=== PATIENT | female | born 1965 | race Caucasian/White ===

== ENCOUNTER 2025-01-10 14:42 | Emergency (ER) | payer OTHER, SELFPAY ==
[2025-01-10] VITALS (8 sets, daily range): BP systolic 115–140; BP diastolic 63–77; PULSE 76–90; RESP 13–18; TEMP 36.5–36.9; O2SAT 98–100; BMI 31.8
--- NOTE | ~2025-01-10 | CT_ITS ---
CLINICAL HISTORY: cp and elevated d dimer r o PE. CT angiography chest with contrast. 3D Postprocessing. Comparison: CR/CO/SR - XR CHEST 2V - 01/10/25 15:45 EDT Findings: Aortic and coronary atherosclerosis. No aneurysm. No acute pulmonary embolus. Normal heart size. Normal RV/LV ratio. Thyroid gland is not visualized. No enlarged mediastinal or hilar lymph nodes. Linear scarring versus atelectasis in the right upper lobe and lingula. No consolidation, pleural effusion or pneumothorax. Splenomegaly measuring 19.9 cm in the AP dimension. Nodular contour of the liver suggesting cirrhosis. Fatty atrophy of the pancreas. Contracted gallbladder. Subacute to chronic fractures of the right anterior 2nd through 6th and left anterior 3rd through 5th ribs. IMPRESSION: 1. No acute pulmonary embolus. 2. Subacute to chronic fractures of the right anterior 2nd through 6th and left anterior 3rd through 5th ribs. 3. Splenomegaly, measuring 19.9 cm. Nodular hepatic contour suggesting cirrhosis. This document has been electronically signed by: Clementina Salter MD on 01/10/2025 22:03:38
--- NOTE | ~2025-01-10 | XR_ITS ---
EXAMINATION: XR CHEST CLINICAL INFORMATION: chest pain COMPARISON: None available. TECHNIQUE: 2 views of the chest were obtained. FINDINGS: Poor inspiration. No consolidation, pleural effusion or pneumothorax. Cardiomediastinal silhouette size is normal. Calcified plaque thoracic aortic arch. Mild multilevel thoracic spondylosis. Kyphotic deformity of the upper thoracic spine. Patient's large body habitus/obesity. XR/XR chest 2V IMPRESSION: No acute airspace disease. Electronically signed by: Lucio Sierra MD 01/10/2025 03:49 PM EDT RP
--- NOTE | 2025-01-10 14:44 | ECG_ITS ---
Test Reason : chest pain Blood Pressure : */* mmHG Vent. Rate : 86 BPM Atrial Rate : 86 BPM P-R Int : 142 ms QRS Dur : 70 ms QT Int : 356 ms P-R-T Axes : 19 2 21 degrees QTcB Int : 426 ms Normal sinus rhythm Minimal voltage criteria for LVH, may be normal variant ( R in aVL ) Borderline ECG No previous ECGs available Referred By: Generic ED Physician Electronically Signed By: YAMEL SAINZ
--- NOTE | 2025-01-10 14:59 | ED.CHESTPAIN ---
HPI - Chest Pain General Chief Complaint: Chest Pain Stated Complaint: Chest pain, SOB Time Seen by Provider: 01/10/25 16:47 Source: patient and family (Daughter) Mode of arrival: ambulatory Limitations: no limitations History of Present Illness ED Provider: DR. Quevedo HPI narrative: 59-year-old female presented with multiple symptoms since this morning, patient woke up this morning with mid chest pain with no radiation localized to the left of the midsternum, pain was associated with subjective difficulty breathing, dizziness and lightheadedness. No recent travel, no lower extremity swelling or tenderness, no history of cigarette smoking or history of lung disease. 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 Related Data Allergies Allergy/AdvReac Type Severity Reaction Status Date / Time Penicillins Allergy Anaphylaxis Verified 01/10/25 14:58 sitagliptin [From Januvia] Allergy Unknown Verified 01/10/25 14:58 Review of Systems Review of Systems: All other systems are reviewed and are negative Constitutional: Reports as per HPI and Reports no additional constitutional complaints Eyes: Reports as per HPI and Reports no additional eye complaints Reports system reviewed and no additional complaints, except as documented Cardiovascular: Reports as per HPI and Reports no additional cardiovascular complaints Respiratory: Reports as per HPI and Reports no additional respiratory complaints Gastrointestinal: Reports as per HPI and Reports no additional gastrointestinal complaints Genitourinary: Reports no additional female genitourinary complaints Musculoskeletal: Reports no additional musculoskeletal complaints Skin/Breast: Reports system reviewed and no additional complaints, except as docu Psychiatric: Reports no additional psychiatric complaints Endocrine: Reports no additional endocrine complaints Hematologic/Lymphatic: Reports no additional hematologic/lymphatic complaints Allergic/Immunologic: Reports no additional allergic/immunologic complaints Reports system reviewed and no additional complaints, except as documented and Reports Abnormal speech present [facility] Social History Social History Alcohol intake: never Smoked in Last 30 Days: No Use of substances other than those prescribed or required for medical reasons: No Advance Directives: No Advance Directives Information Provided: Yes Patient : No Physical Exam Vital Signs: Vital Signs: Last Vital Signs Temp 98.5 F 01/10/25 22:32 Pulse 85 01/10/25 22:32 Resp 18 01/10/25 22:32 BP 135/77 01/10/25 22:32 Pulse Ox 99 01/10/25 22:32 O2 Del Method Room Air 01/10/25 22:32 BMI result Body Mass Index 31.8 Vital signs have been reviewed and appear to be correct. Blood pressure elevated. Heart rate normal. Respiratory rate normal. Temperature normal. Oxygen saturation normal. Appearance: Alert. Oriented X3. No acute distress. Head: Normal external exam. Normocephalic. Atraumatic. No Lopez signs noted. No raccoon eyes noted Eyes: PERRLA. EOMI. Conjunctiva and sclera normal. Eyelids normal. ENT: TM's Normal. Pharynx normal. Uvula midline. Moist mucous membranes. No trismus noted. No drooling noted. No muffled voice noted. Neck: Normal inspection. Neck supple. FROM. No adenopathy. Thyroid Normal. No meningeal signs. No neck mass noted. CVS: Normal heart rate and rhythm. Heart sound normal. No murmurs noted. Pulses normal throughout. Respiratory: No respiratory distress. Painless inspiration. Breath sounds normal. No wheezes/rales/rhonchi noted. Chest nontender. No accessory muscle usage noted or decreased air movement noted. Abdomen: Soft and nontender. Bowel sounds normal in all 4 quadrants. No distention noted. No organomegaly noted. No visible injury noted. Back: No CVA tenderness. Full range of motion noted. Skin: Skin warm and dry. Normal skin color. Normal skin turgor. No rashes/lesions/lacerations noted. Extremities: No lower extremity edema. Extremities exhibit normal range of motion. Extremities nontender. Neuro: Oriented X 3. Cranial nerve exam: II-XII are grossly intact No motor deficit. No sensory deficit. Reflexes normal. Course Course Course Narrative: This is a rapid medical exam performed by Fletcher Flores NP: Additional HPI, ROS, PE not included below will be deferred to primary provider. Patient is a 59-year-old female with pmhx thrombocytopenia, anemia, DM, PBC, recent dx of HFpEF presenting with mild chest pain. Plan: ekg, cxr, labs Reevaluation(s) Reevaluation #1: Slight elevation of D-dimer, CTA is negative for pulmonary embolism, will hydrate with IV fluids. Patient also was encouraged to drink plenty of fluids after the CAT scan. Time: 21:29 Medications Administered Discontinued Medications Generic Name Dose Route Start Last Admin Trade Name Reshma PRN Reason Stop Dose Admin Lactated Ringer's 1,000 mls @ 999 mls/hr 01/10/25 20:00 01/10/25 21:10 Lr IV 01/10/25 21:00 Infused .Q1H1M ROBBIE Infusion Lactated Ringer's 1,000 mls @ 999 mls/hr 01/10/25 20:30 01/10/25 22:14 Lr IV 01/10/25 21:30 Infused .Q1H1M ROBBIE Infusion Iohexol 100 ml 01/10/25 19:54 01/10/25 19:54 Iohexol 350 Mg/Ml 100 Ml Infus..Btl IV 01/10/25 19:55 65 ml ONCE ONE Administration Procedures Procedure Narrative Procedure Narrative: Ultrasound-guided IV. 20 gauge 1-3/4 inch IV placed in left upper extremity. Adequate blood return, flushes well secured with Tegaderm. Performed by Jen Adame PA-C Medical Decision Making Medical Decision Making MDM Narrative: patient's CTA negative for PE showed subacute bilateral rib fracture Differential Diagnosis Differential Diagnoses: The differential diagnosis associated with the presentation includes (ACS, pulmonary embolism, pneumonia, pneumothorax, pleural effusion, electrolyte derangement, severe anemia, aortic aneurysm.) Admission/Observation Consideration of admission/observation: Escalation of care including admission/observation considered Lab Data [facility] Lab Attestation statement: I reviewed the patient's lab results. 01/10/25 15:10 01/10/25 15:10 Labs: Lab Results 01/10/25 01/10/25 Range/Units 15:10 18:02 WBC 3.6 L (4.8-10.8) X10*3/uL RBC 3.10 L (4.20-5.50) X10*6/uL Hgb 10.2 L (12.0-16.0) g/dl Hct 27.9 L (37.0-47.0) % MCV 90.0 (80.0-98.0) fL MCH 32.9 (27.0-33.0) pg MCHC 36.6 H (31.0-35.0) g/dl RDW 15.8 (11.0-16.0) % Plt Count 68 L (160-400) X10*3/uL MPV 10.1 (9.4-12.3) fL Immature Gran % (Auto) 0.3 (0.0-0.4) % Neut % (Auto) 63.8 (45-73) % Lymph % (Auto) 18.2 L (20-40) % [place] % (Auto) 8.0 (2-11) % Eos % (Auto) 9.1 H (0-4) % Baso % (Auto) 0.6 (0-2) % Lymph # (Auto) 0.7 L (1.2-4.9) X10*3/uL [place] # (Auto) 0.3 (0.1-1.2) X10*3/uL Eos # (Auto) 0.3 (0.0-0.4) X10*3/uL Baso # (Auto) 0.0 (0.0-0.2) X10*3/uL Abs Immat Gran (auto) 0.01 (0.00-0.03) X10*3/uL Absolute Neuts (auto) 2.3 (2.0-8.3) x10*3/uL Absolute Nucleated RBC 0.000 (0.0-0.012) X10*3/uL Nucleated RBC % (auto) 0.0 (0.0-0.2) /100WBC Smear Tech's Comments VERIFIED D-Dimer High Sensitivty 290 NG/ML Sodium 134 L (135-145) mmol/L Potassium 4.6 (3.3-5.1) mmol/L Chloride 102 (96-108) mmol/L Carbon Dioxide 25 (22-29) mmol/L Anion Gap 12 (12-20) BUN 21 H (9-16) mg/dL Creatinine 1.47 H (0.5-1.4) mg/dL Estim Creat Clear Calc 43.7 Estimated GFR 36 Random Glucose 394 H* (60-115) mg/dL Calcium 9.6 (8.4-10.2) mg/dL Magnesium 1.7 (1.6-2.6) mg/dL Total Bilirubin 2.2 H (0.0-1.0) mg/dL AST 27 (5-31) U/L ALT 20 (0-31) U/L Alkaline Phosphatase 85 (39-117) U/L Troponin I High Sens < 2.7 < 2.7 (<3.5-17.0) ng/L Total Protein 6.5 (6.5-8.0) g/dL Albumin 4.0 (3.5-5.0) g/dL Independent Interpretation I performed an independent interpretation of an: CT Scan (CT angio: No acute pulmonary embolism) Radiology Impression Discussion of test interpretation with radiology: I have reviewed the radiologist's reading. Discharge Plan Discharge Clinical Impression: Atypical chest pain Patient Disposition: Home, Self-Care Instructions: Chest Pain (ED) Additional Instructions: your CT scan is negative for blood clot workup showed you have low hemoglobin and low platelet and white count that might be the cause for your shortness a breath follow up with your PCP Referrals: Richard Calloway MD [Primary Care Provider] - Hank Gentile MD [Physician] - Interventions: ED Discharge Assessment Last Done: 01/10/25 22:32 Discharge Date/Time: 01/10/25 22:33 Print Language: Arabic
[2025-01-10 15:39] LABS: Troponin-I High Sensitivity < 2.7 ng/L (<3.5-17.0)
[2025-01-10 15:49] LABS: Alanine Aminotransferase 20 U/L (0-31); Anion Gap 12 (12-20); Aspartate Amino Transferase 27 U/L (5-31); Bilirubin Total 2.2 mg/dL (0.0-1.0); Blood Urea Nitrogen 21 mg/dL (9-16); Calcium 9.6 mg/dL (8.4-10.2); Carbon Dioxide 25 mmol/L (22-29); Chloride 102 mmol/L (96-108); Creatinine Clr Calc Pharmacy 43.7; Estimated Glomerular Filt Rate 36; Glucose Random 394 mg/dL (60-115); Magnesium 1.7 mg/dL (1.6-2.6); Potassium 4.6 mmol/L (3.3-5.1); Sodium 134 mmol/L (135-145); Total Protein 6.5 g/dL (6.5-8.0)
[2025-01-10 16:00] LABS: Basophils Percent Auto 0.6 % (0-2); Eosinophils Absolute Auto 0.3 X10*3/uL (0.0-0.4); Eosinophils Percent Auto 9.1 % (0-4); Hematocrit 27.9 % (37.0-47.0); Hemoglobin 10.2 g/dl (12.0-16.0); Imm Gran Abs Auto 0.01 X10*3/uL (0.00-0.03); Imm Gran Pct Auto 0.3 % (0.0-0.4); Lymphocytes Absolute Auto 0.7 X10*3/uL (1.2-4.9); Lymphocytes Percent Auto 18.2 % (20-40); MANUAL DIFF FLAG SCAN; Mean Corpuscular HGB Conc 36.6 g/dl (31.0-35.0); Mean Corpuscular Hemoglobin 32.9 pg (27.0-33.0); Mean Platelet Volume 10.1 fL (9.4-12.3); Monocytes Absolute Auto 0.3 X10*3/uL (0.1-1.2); Neutrophils Absolute Auto 2.3 x10*3/uL (2.0-8.3); Neutrophils Percent Auto 63.8 % (45-73); PLT CLUMP 1; Red Cell Distribution Width 15.8 % (11.0-16.0); SCAN SMEAR FLAG 1
[2025-01-10 16:02] LABS: White Blood Count 3.6 X10*3/uL (4.8-10.8)
[2025-01-10 16:04] LABS: Platelet Count 68 X10*3/uL (160-400); SLIDE REVIEW VERIFIED
[2025-01-10 16:08] LABS: Alkaline Phosphatase 85 U/L (39-117)
--- OUTSIDE RECORDS SUMMARY | 2025-01-10 16:28 | XMS_ITS | Encounter Summary ---
Author Organization [facility] Address [address] [place] [address] Care Team Providers Care Balancing Machine Set Up Worker Name Role Phone Carolina Park MD Primary Care Provider Carolina Park MD Unavailable Carolina Park MD Unavailable [phone] Carolina Park MD Unavailable Armani Michelle MD Unavailable [phone] Armani Michelle MD Unavailable Pranav Jones MD Unavailable [phone] Steffany Kirkpatrick RN Unavailable [phone] Carla Talbert MD Primary Care Provider [phone] Encounter Details Date Type Department Care Team (Late st Contact Info) Description 11/28/2015 Scanned Document [facility] [address] [address] Provider, Generic Social History Tobacco Use Types Packs/Day Years Used Date Smoking Tobacco: Never Alcohol Use Standard Drinks/Week Comments No 0 (1 standard drink = 0.6 oz pur e alcohol) Non drinker/ no alcohol use Comments No Sex and Gender Information Value Date Recorded Sex Assigned at Female 09/24/2022 11:49 AM EST Legal Sex Female 11:52 PM EDT Gender Identity Female 09/24/2022 11:49 AM EST Sexual Orientation Heterosexual (straight) 09/24 11:49 AM EST documented as of this encounter Plan of Treatment Upcoming Encounters Date Type Department Care Team (Late st Contact Info) Description 01/30/2025 2:30 PM EDT Office Visit [facility] [place] [address] [place] [address] Deniz Jean Baptiste MD [address] [place] [address] [address] [place] [address] documented as of this encounter Visit Diagnoses Not on filedocumented in this encounter Care Teams Balancing Machine Set Up Worker Relationship Specialty Start Date End Date Carolina Park MD [address] [place] [address] PCP - General Internal Medicine 03/25/15 11/02/18 Carla Talbert MD [address] [place] [address] [place] [address] PCP - General Internal Medicine 07/14/22 Carolina Park MD [address] [place] [address] Internal Medicine 03/25/15 11/02/18 Carolina Park MD [address] [place] [address] Internal Medicine 03/25/15 11/02/18 Carolina Park MD [address] [place] [address] Internal Medicine 03/25/15 11/02/18 Armani Michelle MD [address] [id number] Gastroenterology 01/13/18 11/02/18 Armani Michelle MD [address] [address] Gastroenterology 11/03/18 Pranva Jones MD [address] [place] [address] Medical Oncology 07/09/22 Steffany Kirkpatrick, RN [address] [place] [address] Registered Nurse 07/09/22 documented as of this encounter
--- OUTSIDE RECORDS SUMMARY | 2025-01-10 16:28 | XMS_ITS | Clinical Summary ---
Author Organization [facility] Address [address] [place] [address] Care Team Providers Care Craft Worker Name Role Phone Carolina Park MD Primary Care Provider [phone] Surgical History Surgery Date Site/Laterality Comments APPENDECTOMY PROCEDURE:APPENDECTOMY CARPAL TUNNEL RELEASE PROCEDURE:CARPAL TUNNEL RELEASE TOTAL ABDOMINAL HYSTERECTOMY PROCEDURE:TOTAL ABDOMINAL HYSTERECTOMY TRIGGER FINGER RELEASE PROCEDURE:TRIGGER FINGER RELEASE;COMMENT:3rd finger HAND SURGERY 01/03/2018 Left PROCEDURE:PALMAR FASCIECTOMY;COMMENT:Procedure: FASCIECTOMY PALMAR; Surgeon: Timothy Espino MD; Location[place] [facility]; Service: Orthopedics; Laterality: Left; Medical History Medical History Date Comments Diabetes mellitus, type II ( CMS/HCC V24, CMS/HCC V28) DX:Diabetes mellitus, type I I ([facility]) Hypertension DX:Hypertension Dupuytren's contracture of left hand DX:Dupuytren's contracture of left hand Hypothyroidism DX:Hypothyroidis m Family History Medical History Relation Name Comments Alcohol abuse Father Drug abuse Father Hypothyroidism Maternal Grandmother Stroke Maternal Grandmother Alcohol abuse Mother Drug abuse Mother Stroke Mother Relation Name Status Comments Father Maternal Grandmother Mother Social History Tobacco Use Types Packs/Day Years Used Date Smoking Tobacco: Never Smokeless Tobacco: Never Alcohol Use Standard Drinks/Week Comments No 0 (1 standard drink = 0.6 oz pur e alcohol) Comments Unknown Sex and Gender Information Value Date Recorded Sex Assigned at Not on file Legal Sex Female 6:33 PM EST Gender Identity Not on file Sexual Orientation Not on file Obstetrics History Plan of Treatment Health Maintenance Due Date Last Done Comments Breast Cancer Screening 1963 DTaP,Tdap,and Td Vaccines (1 - Tdap) 1982 Cervical Cancer Screening: P ap Smear 1984 Pneumococcal Vaccine: 50+ Ye ars (1 of 1 - PCV) 2013 Zoster Vaccines (1 of 2) 2013 COVID-19 Vaccine ( - 2023-2 5 season) 2024 Influenza Vaccine (Season Ended) 2025 RSV Immunization Adult Patie nts (1 - 1-dose 75+ series) 2038 HIB Vaccines Aged Out No longer eligi ble based on patient's age to complete this topic HPV Vaccines Aged Out No longer eligi ble based on patient's age to complete this topic Hepatitis A Vaccines Aged Out No long er eligible based on patient's age to complete this topic Hepatitis B Vaccines Aged Out No long er eligible based on patient's age to complete this topic IPV Vaccines Aged Out No longer eligi ble based on patient's age to complete this topic MMR Vaccines Aged Out No longer eligi ble based on patient's age to complete this topic Meningococcal ACWY Vaccine Aged Out N o longer eligible based on patient's age to complete this topic Meningococcal B Vaccine Aged Out No l onger eligible based on patient's age to complete this topic Pneumococcal Vaccine: Pediat rics (0 to 5 Years) and At-Risk Patients (6 to 64 Years) Aged Out No longer eligible b ased on patient's age to complete this topic RSV Immunization Patients Un maria fernanda 20 months Aged Out No longer eligible b ased on patient's age to complete this topic Varicella Vaccines Aged Out No longer eligible based on patient's age to complete this topic Care Teams Craft Worker Relationship Specialty Start Date End Date Carolina Park MD [address] [place] [address] PCP - General Family Medicine 01/03/18
--- OUTSIDE RECORDS SUMMARY | 2025-01-10 16:28 | XMS_ITS | Encounter Summary ---
Author Organization [facility] Address [address] [place] [address] Care Team Providers Care Compass Operator Name Role Phone Carolina Park MD Primary Care Provider Carolina Park MD Unavailable Carolina Park MD Unavailable [phone] Carolina Park MD Unavailable Armani Michelle MD Unavailable [phone] Armani Michelle MD Unavailable Pranav Jones MD Unavailable [phone] Steffany Kirkpatrick RN Unavailable [phone] Carla Talbert MD Primary Care Provider [phone] Encounter Details Date Type Department Care Team (Late st Contact Info) Description 12/27/2017 Scanned Document [facility] [employer] [address] [address] Carolina Park MD [address] [address] Social History Tobacco Use Types Packs/Day Years [...] Description 01/30/2025 2:30 PM EDT Office Visit [facility] [place] [address] [place] [address] Deniz Jean Baptiste MD [address] [address] documented as of this encounter Visit Diagnoses Not on filedocumented in this encounter Care Teams Compass Operator Relationship Specialty Start Date End Date Carolina Park MD [address] [place], [place] [phone] PCP - General Internal Medicine 03/25/15 11/02/18 Carla Talbert MD [address] [place] [address] PCP - General Internal Medicine 07/14/22 Carolina Park MD [address] [place], [place] [phone] Internal Medicine 03/25/15 11/02/18 Carolina Park MD [address] [place] [phone] Internal Medicine 03/25/15 11/02/18 Carolina Park MD [address] [place] [address] Internal Medicine 03/25/15 11/02/18 Armani Michelle MD [address] [place] [address] Gastroenterology 01/13/18 11/02/18 Armani Michelle MD [address] [place] [address] Gastroenterology 11/03/18 Pranav Jones MD [address] [place] [address] Medical Oncology 07/09/22 Steffany Kirkpatrick, RN [address] [place] [address] Registered Nurse 07/09/22 documented as of this encounter
--- OUTSIDE RECORDS SUMMARY | 2025-01-10 16:28 | XMS_ITS | Clinical Summary ---
Author Organization [facility] Address [address] [place] [address] Care Team Providers Care Commercial Artist Lettering Name Role Phone Carolina Park MD Primary Care Provider [phone] Allergies Active Allergy Reactions Criticality Noted Date Comments Penicillins Anaphylaxis High 01/02/2018 Medications Medication Sig Dispensed Refills Start Date End Date Status TRULICITY 1.5 MG/0.5ML SOPN Inject 1 Dose under the skin once a week. 0 11/28/2017 Active glyBURIDE-metFORMIN (GLUCOVANCE) 5-500 MG per tablet Take 2 tablets by mouth 2 (two) times a day. 0 11/22/2017 Active guaiFENesin-codeine (ROBITUSSIN-AC) 100-10 MG/5ML syrup Take 5 mL by mouth 4 (four) times a day as needed. For cough 0 11/22/2017 Active SYNTHROID 125 MCG tablet Take 1 tablet by mouth daily. 0 11/22/2017 Active PROAIR HFA 108 (90 Base) MCG/ACT inhaler Inhale 1 puff into the lungs as needed. 0 10/06/2017 Active mometasone-formotero l (DULERA) 100-5 MCG/ACT inhaler 1 inhalation by Inhaled route every 12 (twelve) hours. 0 Active Multiple Vitamins-Minerals (MULTIVITAMIN ADULT PO) Take 1 tablet by mouth daily. 0 Active simvastatin (ZOCOR) tablet 10 mg Take 1 tablet by mouth every night at bedtime. 0 11/22/2017 Active valsartan (DIOVAN) tablet 80 mg Take 1 tablet by mouth daily. 0 11/22/2017 Active Family History Medical History Relation Name Comments Alcohol abuse Father Drug abuse Father Hypothyroidism Maternal Grandmother Stroke Maternal Grandmother Alcohol abuse Mother Drug abuse Mother Stroke Mother Relation Name Status Comments Father Maternal Grandmother Mother Social History Tobacco Use Types Packs/Day Years Used Date Smoking Tobacco: Never Smokeless Tobacco: Never Tobacco Cessation:Counseling Given: No Alcohol Use Standard Drinks/Week Comments No 0 (1 standard drink = 0.6 oz pur e alcohol) Sex and Gender Information Value Date Recorded Sex Assigned at Not on file Gender Identity Not on file Sexual Orientation Not on file Last Filed Vital Signs Vital Sign Reading Time Taken Comments Blood Pressure 114/65 01/03/2018 10:32 AM EDT Pulse 75 01/03/2018 10:40 AM EDT not patients vitals flowing from different monitor Temperature 36.3 ??C (97.3 ??F) 01/03/2018 1 0:07 AM EDT Respiratory Rate 20 01/03/2018 10:4 0 AM EDT not patients vitals flowing from different monitor Oxygen Saturation 95% 01/03/2018 10: 40 AM EDT not patients vitals flowing from different monitor Inhaled Oxygen Concentration - - Weight 102.5 kg (226 lb) 01/03/2018 8:2 3 AM EDT Height 165.1 cm (5' 5 ) 01/03/2018 8:23 AM EDT Body Mass Index 37.61 01/03/2018 8:23 AM EDT Plan of Treatment Not on file Care Teams Commercial Artist Lettering Relationship Specialty Start Date End Date Carolina Park MD [address] [facility] [address] [place] [address] PCP - General Family Medicine 01/03/18
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
--- OUTSIDE RECORDS SUMMARY | 2025-01-10 16:28 | XMS_ITS | Encounter Summary ---
Author Organization [facility] Address [address] [place] [address] Care Team Providers Care System Safety Engineer Name Role Phone Carolina Park MD Primary Care Provider Carolina Park MD Unavailable Carolina Park MD Unavailable [phone] Carolina Park MD Unavailable Armani Michelle MD Unavailable [phone] Armani Michelle MD Unavailable Pranav Jones MD Unavailable [phone] tSeffany Kirkpatrick RN Unavailable [phone] Carla Talbert MD Primary Care Provider [phone] Reason for Visit * Reason Comments Medication Refill Encounter Details Date Type Department Care Team (Late st Contact Info) Description 05/02/2017 Refill [facility] [address] [phone] Carolina Park MD [address] [address] Essential hypertension Social History Tobacco Use Types Packs/Day Years [...] Description 01/30/2025 2:30 PM EDT Office Visit [facility] [address] [phone] Deniz Jean Baptiste MD [address] [place] [address] documented as of this encounter Visit Diagnoses Diagnosis Essential hypertension Unspecified essential hypertension documented in this encounter Care Teams System Safety Engineer Relationship Specialty Start Date End Date Carolina Park MD [address] [place] [address] PCP - General Internal Medicine 03/25/15 11/02/18 Carla Talbert MD [address] [place] [address] PCP - General Internal Medicine 07/14/22 Carolina Park MD [address] [place] [address] Internal Medicine 03/25/15 11/02/18 Carolina Park MD [address] [place] [address] Internal Medicine 03/25/15 11/02/18 Carolina Park MD [address] [place] [address] Internal Medicine 03/25/15 11/02/18 Armani Michelle MD [address] [place], [place] [phone] Gastroenterology 01/13/18 11/02/18 Armani Michelle MD [address] [place] [address] Gastroenterology 11/03/18 Pranav Jones MD [address] [place] [address] Medical Oncology 07/09/22 Steffany Kirkpatrick, RN [address] [place] [address] Registered Nurse 07/09/22 documented as of this encounter
--- OUTSIDE RECORDS SUMMARY | 2025-01-10 16:28 | XMS_ITS | Encounter Summary ---
Author Organization [facility] Address [address] [place] [address] Care Team Providers Care Swatch Maker Name Role Phone Carolina Park MD Primary Care Provider Carolina Park MD Unavailable Carolina Park MD Unavailable [phone] Carolina Park MD Unavailable Armani Michelle MD Unavailable Armani Michelle MD Unavailable [phone] Pranav Jones MD Unavailable [phone] Steffany Kirkpatrick RN Unavailable [phone] Carla Talbert MD Primary Care Provider [phone] Encounter Details Date Type Department Care Team (Late st Contact Info) Description 11/27/2016 Scanned Document [facility] [address] [place] [phone] Provider, Generic Social History Tobacco Use [...] Description 01/30/2025 2:30 PM EDT Office Visit [facility] [place] [address] [place] [address] Deniz Jean Baptiste MD [address] [place] [address] [address] [place] [address] documented as of this encounter Visit Diagnoses Not on filedocumented in this encounter Care Teams Swatch Maker Relationship Specialty Start Date End Date Carolina Park MD [address] [place] [address] PCP - General Internal Medicine 03/25/15 11/02/18 Carla Talbert MD [address] [place] [address] [place] [address] PCP - General Internal Medicine 07/14/22 Carolina Park MD [address] [place] [address] Internal Medicine 03/25/15 11/02/18 Carolina Park MD [address] [place] [address] Internal Medicine 03/25/15 11/02/18 Carolina Park MD [address] [place] [address] Internal Medicine 03/25/15 11/02/18 Armani Michelle MD [address] [phone] Gastroenterology 01/13/18 11/02/18 Armani Michelle MD [address] [address] Gastroenterology 11/03/18 Pranav Jones MD [address] [place] [address] Medical Oncology 07/09/22 Steffany Kirkpatrick, RN [address] [place] [address] Registered Nurse 07/09/22 documented as of this encounter
--- OUTSIDE RECORDS SUMMARY | 2025-01-10 16:28 | XMS_ITS | Encounter Summary ---
Author Organization [facility] Address [address] [place] [address] Care Team Providers Care Mediator Name Role Phone Carolina Park MD Primary Care Provider [phone] Carolina Park MD Unavailable Carolina Park MD Unavailable [phone] Carolina Park MD Unavailable [phone] Armani Michelle MD Unavailable [phone] Armani Michelle MD Unavailable Pranav Jones MD Unavailable [phone] Steffany Kirkpatrick RN Unavailable [phone] Carla Talbert MD Primary Care Provider [phone] Reason for Visit * Reason Comments Medication Refill Encounter Details Date Type Department Care Team (Late st Contact Info) Description 04/07/2018 Refill CC [facility] [address] [phone] Carolina Park MD [address] [address] Type 2 diabetes mellitus without complication, with long-term current use of insulin (HCC) Social History Tobacco Use Types Packs/Day Years [...] Description 01/30/2025 2:30 PM EDT Office Visit [facility] [address] [phone] Deniz Jean Baptiste MD [address] [place] [address] documented as of this encounter Visit Diagnoses Diagnosis Type 2 diabetes mellitus without complication, with long-term current use of insulin (HCC) documented in this encounter Care Teams Mediator Relationship Specialty Start Date End Date Carolina Park MD [address] [place] [address] PCP - General Internal Medicine 03/25/15 11/02/18 Carla Talbert MD [address] [place] [address] PCP - General Internal Medicine 07/14/22 Carolina Park MD [address] [place] [id number] Internal Medicine 03/25/15 11/02/18 Carolina Park MD [address] [phone] Internal Medicine 03/25/15 11/02/18 Carolina Park MD [address] [address] Internal Medicine 03/25/15 11/02/18 Armani Michelle MD [address] [place] [address] Gastroenterology 01/13/18 11/02/18 Armani Michelle MD [address] [place] [address] Gastroenterology 11/03/18 Pranav Jones MD [address] [place] [address] Medical Oncology 07/09/22 Steffany Kirkpatrick, RN [address] [place] [address] Registered Nurse 07/09/22 documented as of this encounter
--- OUTSIDE RECORDS SUMMARY | 2025-01-10 16:28 | XMS_ITS | Clinical Summary ---
Author Organization [facility] Address [address] [place] [address] Care Team Providers Care Automobile Tire Builder Name Role Phone Armani Michelle MD Unavailable [phone] Pranav Jones MD Unavailable [phone] Steffany Kirkpatrick RN Unavailable [phone] Carla Talbert MD Primary Care Provider [phone] Allergies Active Allergy Reactions Criticality Noted Date Comments Empagliflozin Other (See Comments) Low 12/31/2024 UTIs and yeast infections Penicillins Anaphylaxis High 04/11/2015 Medications glyBURIDE-metFORMI N (GLUCOVANCE) 5-500 MG per tabletIndications: Type 2 diabetes mellitus without complication, with long-term current use of insulin (HCC) Take 1 tablet by mouth 3 (three) times a day. 270 tablet 1 09/07/19 19 Active Additional Information Patient taking differently: 2 tabletOral2 times daily, Reason: Other, Informant: Self, Reported on 01/18/2023 simvastatin (ZOCOR) 10 MG tabletIndications: Hyperlipidemia, unspecified hyperlipidemia type Take 1 tablet (10 mg total) by mouth nightly. 90 tablet 1 09/07/19 19 Active empagliflozin (JARDIANCE) 25 MG tablet Take 1 tablet (25 mg total) by mouth every morning. Active dulaglutide (Trulicity) 3 mg/0.5 mL prefilled pen injection 3 mg once a week. Mondays09/08/19 21 Active Lifitegrast (Xiidra) 5 % Solution Administer 1 drop to both eyes 2 (two) times a day. Active ursodiol (CASSANDRA FORTE) 500 MG tabletIndications: Primary biliary cholangitis (HCC) TAKE 1 TABLET BY MOUTH TWICE A DAY WITH MEALS 60 tablet 5 02/22/20 23 Active levothyroxine (SYNTHROID, LEVOTHROID) 112 MCG tablet Take 1 tablet (112 mcg total) by mouth every morning. Active cholecalciferol (VITAMIN D3) 125 MCG (5000 UT) capsule Take 1 capsule (5,000 Units total) by mouth daily. Active carvedilol (COREG) 6.25 MG tabletIndications: Secondary esophageal varices without bleeding (HCC) Take 1 tablet (6.25 mg total) by mouth 2 (two) times a day with meals. 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/2015 Hypothyroidism 12/16/2014 Insomnia 12/16/2014 Controlled type 2 diabetes mellitus without comp lication 09/12/2014 Hyperlipidemia 09/12/2014 Essential hypertension 09/12/2014 Obesity 06/06/2014 Resolved Problems Problem Noted Date Diagnosed Date Resolved Date Preop examination 12/27/2017 07/31/2024 Urinary tract infection without hematuria 05/24/2017 11/17/2023 Breast cancer screening 05/17/201611/03 Colon cancer screening 05/17/201611/16 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 05/17/2016 Abdominal pain, epigastric 06/06/2014 0 04/11/2015 Encounters Date Type Department Care Team Description 01/07/2025 Scanned Document [facility] [address] [facility] [address] [place] [address] Provider, MD Nino from Last 3 Months Immunizations Immunization Administration Dates Next Due Influenza Inactivated/Split Preservative Free IM 05/24/2017,05/17/2016,08/21/2015 Family History Medical History Relation Name Comments Alcohol abuse Father Drug abuse Father Illicit Drug us e Hyperthyroidism Maternal Grandmother Stroke Maternal Grandmother Alcohol abuse Mother Drug abuse Mother Illicit Drug us e Stroke Mother Relation Name Status Comments Father Maternal Grandmother Mother Social History Tobacco Use Types Packs/Day Years Used Date Smoking Tobacco: Never Smokeless Tobacco: Never Tobacco Cessation:Counseling Given: Not Answered Alcohol Use Standard Drinks/Week Comments No 0 (1 standard drink = 0.6 oz pur e alcohol) Non drinker/ no alcohol use AUDIT-C Answer Date Recorded Q1: How often do you have a drink containing alcohol? Never 03/25/2023 Q2: How many drinks containi ng alcohol do you have on a typical day when you are drinking? Patient does not drink Q3: How often do you have si x or more drinks on one occasion? Never 03/25/2023 Comments No Sex and Gender Information Value Date Recorded Sex Assigned at Female 09/24/2022 11:49 AM EST Legal Sex Female 11:52 PM EDT Gender Identity Female 09/24/2022 11:49 AM EST Sexual Orientation Heterosexual (straight) 09/24 11:49 AM EST Last Filed Vital Signs Vital Sign Reading Time Taken Comments Blood Pressure 120/80 04/28/2023 9:23 AM EDT Pulse 99 04/28/2023 9:23 AM EDT Temperature 36.4 ??C (97.6 ??F) 03/30/2023 1:06 PM ED T Respiratory Rate 16 03/30/2023 1:35 PM EDT Oxygen Saturation 98% 04/28/2023 9:23 AM EDT Inhaled Oxygen Concentration - - Weight 87.2 kg (192 lb 5.6 oz) 04/28/2023 9:23 A M EDT Height 167.6 cm (5' 5.98 ) 04/28/2023 9:23 AM ED T Body Mass Index 31.06 04/28/2023 9:23 AM EDT Plan of Treatment Upcoming Encounters Date Type Department Care Team (Late st Contact Info) Description 01/30/2025 2:30 PM EDT Office Visit [facility] [place] [address] [place] [address] Deniz Jean Baptiste MD [address] [facility] [address] [place] [address] Health Maintenance Due Date Last Done Comments HIV Screening 1976 DTaP/Tdap/Td Vaccines (1 - Tdap) 1982 Pneumococcal Vaccines 50+ (1 of 2 - PCV) 1982 Colonoscopy 2013 Zoster (Shingles) Vaccine (1 of 2) 2013 Mammogram 07/26/2018 07/26/2017, 12/23/2014 Hemoglobin A1C 11/15/2018 05/18/2018, 11/03, 09/24/2016, Additional history exists Microalbumin/Creatinine Ratio Urine 11/18/2018 11/18/2017, 05/14/2016, 12/11/2014, Additional history exists Foot Exam 11/26/2018 11/26/2017 (Prev iously Completed) Lipid Panel 05/18/2019 05/18/2018, 11/03, 01/22/2017, Additional history exists Ophthalmology Exam 03/17/2021 03/17/2020, 0 12/03/2017 (Previously Completed) RSV Vaccine 60 years and older and Patients (1 - Risk 60-74 years 1-dose series) 2023 COVID-19 Vaccine ( season) 2024 09/03/2021, 02/12/2021, 01/22/2021 Creatinine with GFR 05/30/2024 05/30/2023, 05/16/2023, 05/02/2023, Additional history exists Influenza Vaccine 04/05/2025 08/16/2022, , 05/29/2018, Additional history exists Hepatitis C Virus Screening Completed 12/06/2017 Hepatitis B Vaccines Aged Out No long er eligible based on patient's age to complete this topic Pap Smear (Ages 21-65) Discontinued Medical Devices Implanted Type Area Rivet Hole Machine Operator Device Identifier Shelf Expiration Date Model / Serial / Lot [id number] [employer] Toric Uva [id number] - [id number] Implanted:Qty: 1 on 10/07/2022 by Milton Rose MD at [facility] [place], [place] [employer] CCWET6 / [id number] / Description:CCWET6 Ccwtt0.135 [employer] Uv Ccwtt0.135 - [id number] Implanted:Qty: 1 on 10/21/2022 by Milton Rose MD at [facility] [place], [place] [employer] CCWET5 / [id number] / Description:CCWET5 Procedures Procedure Name Priority Date/Time Associated Diagnosis Comments COMPREHENSIVE METABOLIC PANEL Routine 05/30/2023 6:21 AM EDT Primary biliary cholangitis (HCC) HX OPHTHALMOLOGY TESTING PROCEDURES Routine 03/17/2020 HEMOGLOBIN A1C Routine 05/18/2018 11:09 AM EDT Uncontrolled type 2 diabetes mellitus without complication, without long-term current use of insulin (HCC) LIPID PANEL WITH NONHDL Routine 05/18/2018 11:09 AM EDT HEPATITIS C VIRUS (HCV) ANTIBODY Routine 12/06/2017 11:05 AM EDT Elevated liver function tests Thrombocytopenia (HCC) MICROALBUMIN, CREATININE, URINE, RANDOM Routine 11/18/2017 9:14 AM EDT Uncontrolled type 2 diabetes mellitus without complication, without long-term current use of insulin (HCC) MM MAMMOGRAM SCREENING-BILATERAL Routine 07/26/2017 9:24 AM EST Breast cancer screening from Last 3 Months or Most Recently Relevant to Health Maintenance Results * (ABNORMAL) Comprehensive Metabolic Panel (05/30/2023 6:21 AM EDT) Glucose 136(H) 65 - 99 mg/dL [facility] Comment: ? Fasting reference interval For someone without known diabetes, a glucose value >125 mg/dL indicates that they may have diabetes and this should be confirmed with a follow-up test. Blood Urea Nitrogen (BUN) 18 7 - 25 mg/dL [facility] Creatinine 0.85 0.50 - 1.03 mg/dL [facility] Creatinine w/ eGFR 79 > OR = 60 mL/min/1. 73m2 [facility] BUN/Creatinine Ratio SEE NOTE: (calc) [facility] Comment: ?? Not Reported: BUN and Creatinine are within ?? reference range. ? Sodium 140 135 - 146 mmol/L [facility] Potassium 4.1 3.5 - 5.3 mmol/L [facility] Chloride 102 98 - 110 mmol/L [facility] CO2 30 20 - 32 mmol/L [facility] Calcium 8.9 8.6 - 10.4 mg/dL [facility] Protein, Total 5.9(L) 6.1 - 8.1 g/dL [facility] Albumin 3.7 3.6 - 5.1 g/dL [facility] Globulin 2.2 1.9 - 3.7 g/dL (calc) [facility] Albumin/Globuli n Ratio 1.7 1.0 - 2.5 (calc) [facility] Bilirubin, Total 1.4(H) 0.2 - 1.2 mg/dL [facility] Alkaline Phosphatase 55 37 - 153 U/L [facility] Aspartate Aminotrans (AST) 19 10 - 35 U/L [facility] Alanine Aminotrans (ALT) 16 6 - 29 U/L [facility] Blood specimen (specimen) Blood specimen / Unknown 05/30/2023 6:21 AM EDT 05/30/2023 6:22 AM EDT Narrative [facility] - 05/31/2023 1:09 AM EDT FASTING:YES FASTING: YES Deniz Jean Baptiste MD LAB BLOOD ORDERABLES Final Res ult [facility] [address] [place] [phone] * OPHTHALMOLOGY TESTING PROCEDURES (03/17/2020) External Provider HX AMB PROCEDURES Final Res ult * (ABNORMAL) Lipid panel with nonHDL (05/18/2018 11:09 AM EDT) Cholesterol, Total 121 <200 mg/dL [facility] Cholesterol, HDL 32(L) >50 mg/dL [facility] Triglycerides 129 <150 mg/dL [facility] LDL Cholesterol 68 mg/dL (calc) [facility] Comment: Reference range: <100 Desirable range <100 mg/dL for primary prevention; ?? <70 mg/dL for patients with CHD or diabetic patients with > or = 2 CHD risk factors. LDL-C is now calculated using the Petre-Shields calculation, which is a validated novel method providing better accuracy than the Friedewald equation in the estimation of LDL-C. Peter SS et al. LYNSEY. 2013;310(19): 7777-9903 (http://education.Flywheel Software/faq/TJW853) Cholesterol/HDL Ratio 3.8 <5.0 (calc) [facility] Non HDL Chol. (LDL+VLDL) 89 <130 mg/dL (calc) [facility] Comment: For patients with diabetes plus 1 major ASCVD risk factor, treating to a non-HDL-C goal of <100 mg/dL (LDL-C of <70 mg/dL) is considered a therapeutic option. 05/18/2018 11:0 9 AM EDT 05/18/2018 11:09 AM EDT Narrative Resulting Agency Comment Performing Organization Information: ?Site ID: [id number] ?Name: [facility] ?Address: [address] [place] [address], [place] [address] ?Director: Tania Huynh MD Carolina Prak MD LAB BLOOD ORDERABLES Final Re sult Performing Organization Address [facility] Co de Phone Number [facility] [address] [address] * (ABNORMAL) Hemoglobin A1c (05/18/2018 11:09 AM EDT) Hemoglobin A1C 6.8(H) <5.7 % of total Hgb [facility] Comment: For someone without known diabetes, a hemoglobin A1c value of 6.5% or greater indicates that they may have diabetes and this should be confirmed with a follow-up test. For someone with known diabetes, a value <7% indicates that their diabetes is well controlled and a value greater than or equal to 7% indicates suboptimal control. A1c targets should be individualized based on duration of diabetes, age, comorbid conditions, and other considerations. Currently, no consensus exists regarding use of hemoglobin A1c for diagnosis of diabetes for children. ?? Blood specimen (specimen) Blood specimen / Unknown 05/18/2018 11:09 AM EDT 05/18/2018 11:09 AM EDT Narrative Resulting Agency Comment Performing Organization Information: ?Site ID: [id number] ?Name: [facility] ?Address: [address] [place] [phone] ?Director: Tania Huynh MD Carolina Park MD LAB BLOOD ORDERABLES Final Re sult Performing Organization Address [facility] Co de Phone Number [facility] [address], [place] [address] * Hepatitis C Antibody (12/06/2017 11:05 AM EDT) Hepatitis C Antibody NON-REACTI VE NON-REACT NIKOLE [facility] Hepatitis C Antibody (s/co) 0.01 <1.00 [facility] Blood specimen (specimen) Blood specimen / Unknown 12/06/2017 11:05 AM EDT 12/06/2017 11:05 AM EDT Narrative [facility] - 12/08/2017 9:38 AM EDT FASTING:NO FASTING: NO Resulting Agency Comment Performing Organization Information: ?Site ID: [id number] ?Name: [facility] ?Address: [address] [place] [address], [place] [address] ?Director: Tania Huynh MD Carolina Park MD LAB BLOOD ORDERABLES Final Re sult [facility] [address], [place] [address] * Microalbumin, Creatinine, Urine, Random (11/18/2017 9:14 AM EDT) Creatinine, Urine, Random 224 20 - 320 mg/dL [facility] Microalbumin, Urine, Random 1.5 See Note: mg/dL [facility] Comment: Reference Range: Reference Range Not established Microalbumin/Creat inine Ratio 7 <30 mcg/mg creat [facility] Comment: The ADA defines abnormalities in albumin excretion as follows: Category ? Result (mcg/mg creatinine) Normal ?<30 Microalbuminuria ? 30-299 Clinical albuminuria ?? > OR = 300 The ADA recommends that at least two of three specimens collected within a 3-6 month period be abnormal before considering a patient to be within a diagnostic category. Urine Voided urine specimen / Unknown 11/18/2017 9:14 AM EDT 11/18/2017 9:15 AM EDT Narrative [facility] - 11/19/2017 11:53 AM EDT FASTING:YES FASTING: YES Resulting Agency Comment Performing Organization Information: ?Site ID: [id number] ?Name: [facility] ?Address: [address] [place] [address], [place] [address] ?Director: Tania Huynh MD Carolina Park MD URINE ORDERABLES Final Result [facility] [address] [facility] 3rd Floor, [place] [address] * MM Mammogram screening-Bilateral (07/26/2017 9:24 AM EST) Anatomical Region Laterality Modality Breast Bilateral Mammography 07/23/2017 7:45 AM EST 07/23/2017 7:45 AM EST Impressions 07/26/2017 9:24 AM EST There is no mammographic evidence of malignancy. Routine follow-up mammogram in 1 year is recommended. The patient will receive a lay summary of the results of this breast imaging exam. Lay summaries for mammography examinations will also identify the patients personal breast tissue composition as required by state law. BIRADS Category 1: Negative *BREAST COMPOSITION Breast composition descriptions are based on the standard practice guidelines of the ACR BI-RADS [place]. A reference guide is provided below. BREAST COMPOSITION CATEGORIES - BIRADS VERSION V a. The breasts are almost entirely fatty. b. There are scattered areas of fibroglandular density. c. The breasts are heterogeneously dense, which may obscure small masses. d. The breasts are extremely dense, which lowers the sensitivity of mammography. Patients in categories c. and d. may qualify for supplemental screening exams. Thank you for referring your patient to us, Vane Velasco MD [phone] (Electronically Signed - 07/26/2017 09:24) Narrative 07/26/2017 9:24 AM EST HISTORY: Patient is 51 years old and is seen for screening. The patient has no personal history of breast or ovarian cancer. The patient has no family history of breast cancer. FILMS COMPARED: The present examination has been compared to a prior imaging study dated 12/23/2014. MAMMOGRAM FINDINGS: The following digital mammographic views were obtained: bilateral craniocaudal, bilateral mediolateral oblique. There are scattered fibroglandular densities. (ACR BIRADS density Category b) * No suspicious masses, calcifications or other abnormalities are seen in either breast. ??There are no significant changes from the prior study. Computer-aided detection was utilized by the radiologist in the interpretation of this examination. Procedure Note Vane Velasco MD - 07/26/2017 HISTORY: Patient is 51 years old and is seen for screening. The patient has no personal history of breast or ovarian cancer. The patient has no family history of breast cancer. FILMS COMPARED: The present examination has been compared to a prior imaging study dated12/23/2014. MAMMOGRAM FINDINGS: The following digital mammographic views were obtained: bilateralcraniocaudal, bilateral mediolateral oblique. There are scattered fibroglandular densities. (ACR BIRADS density Categoryb) * No suspicious masses, calcifications or other abnormalities are seen ineither breast. There are no significant changes from the prior study. Computer-aided detection was utilized by the radiologist in theinterpretation of this examination. IMPRESSION: There is no mammographic evidence of malignancy. Routine follow-up mammogram in 1 year is recommended. The patient will receive a lay summary of the results of this breastimaging exam. Lay summaries for mammography examinations will alsoidentify the patients personal breast tissue composition as required bystate law. BIRADS Category 1: Negative *BREAST COMPOSITION Breast composition descriptions are based on the standard practiceguidelines of the ACR BI-RADS [place]. A reference guide is providedbelow. BREAST COMPOSITION CATEGORIES - BIRADS VERSION V a. The breasts are almost entirely fatty. b. There are scattered areas of fibroglandular density. c. The breasts are heterogeneously dense, which may obscure smallmasses. d. The breasts are extremely dense, which lowers the sensitivity ofmammography. Patients in categories c. and d. may qualify for supplemental screeningexams. Thank you for referring your patient to us, Vane Velasco MD [phone] (Electronically Signed - 07/26/2017 09:24) us Carolina Park MD IMG MAMMOGRAPHY ORDERABLES Fi nal Result from Last 3 Months or Most Recently Relevant to Health Maintenance Insurance [facility] PPO [facility] Care Teams Automobile Tire Builder Relationship Specialty Start Date End Date Carla Talbert MD [address] [place] [address] [place] [address] PCP - General Internal Medicine 07/14/22 Armani Michelle MD [address] [address] Gastroenterology 11/03/18 Pranav Jones MD [address] [place] [id number] Medical Oncology 07/09/22 Steffany Kirkpatrick, RN [address] [place] [address] Registered Nurse 07/09/22
--- OUTSIDE RECORDS SUMMARY | 2025-01-10 16:28 | XMS_ITS | Encounter Summary ---
Author Organization [facility] Address [address] [place] [address] Care Team Providers Care Rig Site Engineer Name Role Phone Armani Michelle MD Unavailable [phone] Pranav Jones MD Unavailable [phone] Steffany Kirkpatrick RN Unavailable [phone] Carla Talbert MD Primary Care Provider [phone] Encounter Details Date Type Department Care Team (Late st Contact Info) Description 04/28/2023 [facility] [address] [facility] [address] [place] [address] Deniz Jean Baptiste MD [address] [facility] [place] [address] [place] [address] Other ascites (Primary Dx) Social History Tobacco Use Types Packs/Day Years [...] [facility] [place] [address] [place] [address] Deniz [facility] Baptiste MD [facility] [address] [place] [address] documented as of this encounter Procedures Procedure Name Priority Date/Time Associated Diagnosis Comments COMPREHENSIVE METABOLIC PANEL Routine 05/02/2023 7:23 AM EDT Other ascites documented in this encounter Results * (ABNORMAL) Comprehensive Metabolic Panel (05/02/2023 7:23 AM EDT) Glucose 123(H) 65 - 99 mg/dL [facility] Comment: ? Fasting reference interval For someone without known diabetes, a glucose value between 100 and 125 mg/dL is consistent with prediabetes and should be confirmed with a follow-up test. Blood Urea Nitrogen (BUN) 9 7 - 25 mg/dL [facility] Creatinine 0.71 0.50 - 1.03 mg/dL [facility] Creatinine w/ eGFR 98 > OR = 60 mL/min/1. 73m2 [facility] BUN/Creatinine Ratio SEE NOTE: (calc) [facility] Comment: ?? Not Reported: BUN and Creatinine are within ?? reference range. ? Sodium 139 135 - 146 mmol/L [facility] Potassium 3.5 3.5 - 5.3 mmol/L [facility] Chloride 101 98 - 110 mmol/L [facility] CO2 29 20 - 32 mmol/L [facility] Calcium 8.8 8.6 - 10.4 mg/dL [facility] [employer] Protein, Total 6.1 6.1 - 8.1 g/dL [facility] Albumin 3.8 3.6 - 5.1 g/dL [facility] [employer] Globulin 2.3 1.9 - 3.7 g/dL (calc) [facility] Albumin/Globuli n Ratio 1.7 1.0 - 2.5 (calc) [facility] Bilirubin, Total 2.0(H) 0.2 - 1.2 mg/dL [facility] Alkaline Phosphatase 72 37 - 153 U/L [facility] Aspartate Aminotrans (AST) 27 10 - 35 U/L [facility] Alanine Aminotrans (ALT) 20 6 - 29 U/L [facility] Blood specimen (specimen) Blood specimen / Unknown 05/02/2023 7:23 AM EDT 05/02/2023 7:23 AM EDT Narrative [facility] - 05/02/2023 10:31 PM EDT FASTING:YES FASTING: YES us Deniz Jean Baptiste MD LAB BLOOD ORDERABLES Final Res ult [facility] [address] [place] [address] documented in this encounter Visit Diagnoses Diagnosis Other ascites- Primary documented in this encounter Care Teams Rig Site Engineer Relationship Specialty Start Date End Date Carla Talbert MD [address] [place] [address] PCP - General Internal Medicine 07/14/22 Armani Michelle MD [address] [place] [id number] Gastroenterology 11/03/18 Pranav Jones MD [address] [place] [address] Medical Oncology 07/09/22 Steffany Kirkpatrick RN [address] [place] [address] Registered Nurse 07/09/22 documented as of this encounter
--- OUTSIDE RECORDS SUMMARY | 2025-01-10 16:28 | XMS_ITS | Encounter Summary ---
Author Organization [facility] Address [address] [place] [address] Care Team Providers Care Foundation Assistant Name Role Phone Armani Michelle MD Unavailable Pranav Jones MD Unavailable [phone] Steffany Kirkpatrick RN Unavailable [phone] Carla Talbert MD Primary Care Provider [phone] Encounter Details Date Type Department Care Team (Late st Contact Info) Description 07/13/2022 Telephone [facility] Transplant Program & [facility] Liver Center [address] [address] Neelima Shaikh MA 85 [facility] [address] [place] [address] Social History Tobacco Use Types Packs/Day Years [...] AM EST documented as of this encounter Miscellaneous Notes * Telephone Encounter - Neelima Shaikh MA - 07/14/2022 2:03 PM EST Patient has been scheduled for 11/03/[address] jean baptiste in [place] * Telephone Encounter - Shayla Hawkins APRN - 07/14/2022 9:01 AM EST Records reviewed. Referred for splenomegaly/thrombocytopenia. Needs to see a needle leader. Please schedule with Dr Jean Baptiste in [place], first available. Thanks * Telephone Encounter - Neelima Shaikh MA - 07/13/2022 10:39 AM EST New patient records received. Transcribe order completed. Care Team added. Records are available inEpic. please advise documented in this encounter Plan of Treatment Upcoming Encounters Date Type Department Care Team (Late st Contact Info) Description 01/30/2025 2:30 PM EDT Office Visit [facility] & [facility] [place] [address] [place], [place] [phone] Deniz Jean Baptiste MD 85 [facility] [address] [place] [address] documented as of this encounter Visit Diagnoses Not on filedocumented in this encounter Care Teams Foundation Assistant Relationship Specialty Start Date End Date Carla Talbert MD [address] [place] [address] PCP - General Internal Medicine 07/14/22 Armani Michelle MD [address] [address] Gastroenterology 11/03/18 Pranav Jones MD [address] [place] [address] Medical Oncology 07/09/22 Steffany Kirkpatrick RN [address] [place] [address] Registered Nurse 07/09/22 documented as of this encounter
--- OUTSIDE RECORDS SUMMARY | 2025-01-10 16:28 | XMS_ITS | Encounter Summary ---
Author Organization [facility] Address [address] [place] [address] Care Team Providers Care Business Attorney Name Role Phone Carolina Park MD Primary Care Provider Carolina Park MD Unavailable [phone] Carolina Park MD Unavailable [phone] Carolina Park MD Unavailable Armani Michelle MD Unavailable Armani Michelle MD Unavailable Pranav Jones MD Unavailable [phone] Steffany Kirkpatrick RN Unavailable [phone] Carla Talbert MD Primary Care Provider + [phone] Encounter Details Date Type Department Care Team (Late st Contact Info) Description 06/20/2016 Scanned Document [facility] [address] [address] Provider, Generic Social History Tobacco [...] Description 01/30/2025 2:30 PM EDT Office Visit [facility] Transplant [facility] [place] [address] [facility] [place] [address] Deniz Jean Baptiste MD [address] [place] [address] [address] [place] [address] documented as of this encounter Visit Diagnoses Not on filedocumented in this encounter Care Teams Business Attorney Relationship Specialty Start Date End Date Carolina Park MD [address] [place] [address] PCP - General Internal Medicine 03/25/15 11/02/18 Carla Talbert MD [address] [place] [address] [place] [address] PCP - General Internal Medicine 07/14/22 Carolina Park MD [address] [place] [address] Internal Medicine 03/25/15 11/02/18 Carolina Park MD [address] [place] [address] Internal Medicine 03/25/15 11/02/18 Carolina Park MD [address] [place] [address] Internal Medicine 03/25/15 11/02/18 Armani Michelle MD [address] [place] [phone] Gastroenterology 01/13/18 11/02/18 Armani Michelle MD [address] [address] Gastroenterology 11/03/18 Pranav Jones MD [address] [place] [address] Medical Oncology 07/09/22 Steffany Kirkpatrick, RN [address] [place] [address] Registered Nurse 07/09/22 documented as of this encounter
--- OUTSIDE RECORDS SUMMARY | 2025-01-10 16:28 | XMS_ITS | Encounter Summary ---
Author Organization [facility] Address [address] [place] [address] Care Team Providers Care Information Systems Security Specialist Name Role Phone Armani Michelle MD Unavailable Pranav Jones MD Unavailable [phone] Steffany Kikrpatrick RN Unavailable [phone] Carla Talbert MD Primary Care Provider [phone] Encounter Details Date Type Department Care Team (Late st Contact Info) Description 07/09/2022 Scanned Document [facility] Transplant Program & [facility] 85 [facility] [address] [place] [address] Provider, Nino, [address] [place] [address] Social History Tobacco Use Types Packs/Day Years [...] 01/30/2025 2:30 PM EDT Office Visit [facility] & [facility] [place] [address] [place], [place] [phone] Deniz Jean Baptiste MD 85 [facility] [address] [place] [address] documented as of this encounter Visit Diagnoses Not on filedocumented in this encounter Care Teams Information Systems Security Specialist Relationship Specialty Start Date End Date Carla Talbert MD [address] [place] [address] [place] [address] PCP - General Internal Medicine 07/14/22 Armani Michelle MD [address] [address] Gastroenterology 11/03/18 Pranav Jones MD [address] [place] [address] Medical Oncology 07/09/22 Steffany Kirkpatrick RN 80 [place] [address] Registered Nurse 07/09/22 documented as of this encounter
--- OUTSIDE RECORDS SUMMARY | 2025-01-10 16:28 | XMS_ITS | Encounter Summary ---
Author Organization [facility] Address [address] [place] [address] Care Team Providers Care Systems Checkout Mechanic Name Role Phone Armani Michelle MD Unavailable Pranav Jones MD Unavailable [phone] Steffany Kirkpatrick RN Unavailable [phone] Carla Talbert MD Primary Care Provider [phone] Encounter Details Date Type Department Care Team (Late st Contact Info) Description 12/13/2022 Scanned Document [facility] Transplant Program & [facility] 85 [facility] [address] [place] [address] Provider, Nino, [address] [place] [address] Social History Tobacco Use Types Packs/Day Years [...] Description 01/30/2025 2:30 PM EDT Office Visit [facility] Transplant Program & [facility] [place] [address] [place], [place] [phone] Deniz Jean Baptiste MD 85 [facility] [address] [place] [address] documented as of this encounter Visit Diagnoses Not on filedocumented in this encounter Care Teams Systems Checkout Mechanic Relationship Specialty Start Date End Date Carla Tablert MD [address] [place] [address] [place] [address] PCP - General Internal Medicine 07/14/22 Armani Michelle MD [address] [address] Gastroenterology 11/03/18 Pranav Jones MD [address] [place] [address] Medical Oncology 07/09/22 Steffany Kirkpatrick RN [address] [place] [address] Registered Nurse 07/09/22 documented as of this encounter
--- OUTSIDE RECORDS SUMMARY | 2025-01-10 16:28 | XMS_ITS | Encounter Summary ---
Author Organization [facility] Address [address] [place] [address] Care Team Providers Care Life Coach Name Role Phone Carolina Park MD Primary Care Provider Carolina Park MD Unavailable Carolina Park MD Unavailable [phone] Carolina Park MD Unavailable Armani Michelle MD Unavailable Armani Michelle MD Unavailable Pranav Jones MD Unavailable [phone] Steffany Kirkpatrick RN Unavailable [phone] Carla Talbert MD Primary Care Provider [phone] Encounter Details Date Type Department Care Team (Late st Contact Info) Description 01/24/2018 Scanned Document [facility] [address] [address] Carolina Park MD [address] [address] Social History Tobacco Use Types [...] Description 01/30/2025 2:30 PM EDT Office Visit [facility] Transplant Program & [facility] [place] [address] [place] [address] Deniz Jean Baptiste MD [address] [address] documented as of this encounter Visit Diagnoses Not on filedocumented in this encounter Care Teams Life Coach Relationship Specialty Start Date End Date Carolina Park MD [address] [place], [place] [phone] PCP - General Internal Medicine 03/25/15 11/02/18 Carla Talbert MD [address] [place] [address] PCP - General Internal Medicine 07/14/22 Carolina Park MD [address] [place], [place] [phone] Internal Medicine 03/25/15 11/02/18 Carolina Park MD [address] [place] [id number] Internal Medicine 03/25/15 11/02/18 Carolina Park MD [address] [place] [address] Internal Medicine 03/25/15 11/02/18 Armani Michelle MD [address] [place] [address] Gastroenterology 01/13/18 11/02/18 Armani Michelle MD [address] [place] [address] Gastroenterology 11/03/18 Pranav Jones MD [address] [place] [address] Medical Oncology 07/09/22 Steffany Kirkpatrick, RN [address] [place] [address] Registered Nurse 07/09/22 documented as of this encounter
--- OUTSIDE RECORDS SUMMARY | 2025-01-10 16:28 | XMS_ITS | Encounter Summary ---
Author Organization [facility] Address [address] [place] [address] Care Team Providers Care Digital Music Instructor Name Role Phone Carolina Park MD Primary Care Provider Carolina Park MD Unavailable Carolina Park MD Unavailable [phone] Carolina Park MD Unavailable Armani Michelle MD Unavailable [phone] Armani Michelle MD Unavailable [phone] Pranav Jones MD Unavailable [phone] Steffany Kirkpatrick RN Unavailable [phone] Carla Talbert MD Primary Care Provider + [phone] Encounter Details Date Type Department Care Team (Late st Contact Info) Description 01/13/2018 Scanned Document [facility] Transplant [facility] and [facility] 85 [facility] [address] [place] [phone] Pranav Tripathi MD 85 [facility] [address] [place] [address] Social History Tobacco Use Types [...] Description 01/30/2025 2:30 PM EDT Office Visit [facility] [place] [address] [place] [address] Deniz Jean Baptiste MD [address] [place] [address] documented as of this encounter Visit Diagnoses Not on filedocumented in this encounter Care Teams Digital Music Instructor Relationship Specialty Start Date End Date Carolina Park MD [address] [place] [address] PCP - General Internal Medicine 03/25/15 11/02/18 Carla Talbert MD [address] [place] [address] PCP - General Internal Medicine 07/14/22 Carolina Park MD [address] [place] [address] Internal Medicine 03/25/15 11/02/18 Carolina Park MD [address] [place] [address] Internal Medicine 03/25/15 11/02/18 Carolina Park MD [address] [place] [address] Internal Medicine 03/25/15 11/02/18 Armani Michelle MD [address] [place] [address] Gastroenterology 01/13/18 11/02/18 Armani Michelle MD [address] [place], [place] [phone] Gastroenterology 11/03/18 Pranav Jones MD [address] [place] [address] Medical Oncology 07/09/22 Steffany Kirkpatrick, RN [address] [place] [address] Registered Nurse 07/09/22 documented as of this encounter
--- OUTSIDE RECORDS SUMMARY | 2025-01-10 16:28 | XMS_ITS | Encounter Summary ---
Author Organization [facility] Address [address] [place] [address] Care Team Providers Care Air Brake Tester Name Role Phone Carolina Park MD Primary Care Provider [phone] Carolina Park MD Unavailable [phone] Carolina Park MD Unavailable [phone] Carolina Park MD Unavailable [phone] Armani Michelle MD Unavailable Armani Michelle MD Unavailable Pranav Jones MD Unavailable [phone] Steffany Kirkpatrick RN Unavailable [phone] Carla Talbert MD Primary Care Provider [phone] Encounter Details Date Type Department Care Team (Late st Contact Info) Description 01/06/2018 Scanned Document [facility] [address] [address] Carolina Park MD [address] [address] Social History Tobacco Use Types [...] Description 01/30/2025 2:30 PM EDT Office Visit [facility] Transplant Program & [facility] [place] [address] [place] [address] Deniz Jean Baptiste MD [address] [address] documented as of this encounter Visit Diagnoses Not on filedocumented in this encounter Care Teams Air Brake Tester Relationship Specialty Start Date End Date Carolina Park MD [address] [place], [place] [phone] PCP - General Internal Medicine 03/25/15 11/02/18 Carla Talbert MD [address] [place] [address] PCP - General Internal Medicine 07/14/22 Carolina Park MD [address] [place], [place] [phone] Internal Medicine 03/25/15 11/02/18 Carolina Park MD [address] [place] [id number] Internal Medicine 03/25/15 11/02/18 Carolina Park MD [address] [place] [address] Internal Medicine 03/25/15 11/02/18 Armani Michelle MD [address] [place] [address] Gastroenterology 01/13/18 11/02/18 Armani Michelle MD [address] [place] [address] Gastroenterology 11/03/18 Pranav Jones MD [address] [place] [address] Medical Oncology 07/09/22 Steffany Kirkpatrick, RN [address] [place] [address] Registered Nurse 07/09/22 documented as of this encounter
--- OUTSIDE RECORDS SUMMARY | 2025-01-10 16:28 | XMS_ITS ---
Author Name [facility] Organization Unknown Results Test Name/Text Value Interpretation Date Range Source GLYCOHEMOGLOBIN (A1C) 7.5% Above high normal [id number] 4 - 5.6 [facility] EPI CELLS 1+ Normal [facility] RBC 1/HPF Above high normal 552614203240 0 - 0 [facility] BACTERIA 1+ Critically abnormal 138476383338 - [facility] WBC 1/HPF Above high normal 795779026529 0 - 0 [facility] KETONES Negative Normal 461902610024 - [facility] [place]UK. ESTERASE Negative Normal - [facility] BILIRUBIN Negative Normal [id number] - [facility] UROBILINOGEN 0.2mg/dL Normal 860894508135 - [facility] NITRITE Negative Normal 649027199296 - [facility] BLOOD Negative Normal 624588229708 - [facility] PH 5.5 Normal 5 - 8 [facility] GLUCOSE >=1000 Critically abnormal 774034538466 - [facility] COLOR Yellow Normal [id number] - [facility] SPECIFIC GRAVITY 1.025 Normal 1.005 - 1.03 [facility] PROTEIN Negative Normal 580368759814 - [facility] APPEARANCE Clear Normal 913917854199 - [facility] MICROALBUMIN RATIO Test not performed Normal 919735497993 - 30 [facility] MICROALBUMIN,URINE < 0.3 Normal [id number] [facility] CREATININE URINE 102 Normal [facility] ABSOLUTE BASO 0K/uL Normal 0 - 0.2 [facility] IMMATURE GRANULOCYTES 0% Normal 0 - 0.45 [facility] ABSOLUTE LYMPHS 0.6K/uL Below low normal [id number] 1.5 - 4.9 [facility] ABSOLUTE NUCLEATED RBC 0K/uL Normal 451210055701 0 - 0.012 [facility] MCV 93fL Normal [id number] 83 - 102 [facility] HGB 12g/dL Below low normal 021283951788 12.1 - 15.7 [facility] MONOCYTES 9% Normal [id number] 0 - 12 [facility] MPV 10fL Normal [id number] 8 - 12 [facility] ABSOLUTE IMMATURE GRANULOCYTES 0K/uL Normal [id number] 0 - 0.3 [facility] RDW 15.9% Above high normal [id number] 11.1 - 13.3 [facility] ABSOLUTE MONOS 0.4K/uL Normal [id number] 0.2 - 1.5 [facility] ABSOLUTE EOS 0.4K/uL Normal [id number] 0 - 0.7 [facility] WBC 4.6K/uL Normal [id number] 3.7 - 10.3 [facility] ABSOLUTE GRANULOCYTES 3.1K/uL Normal 973392940575 2.2 - 7.3 [facility] PLATELET COUNT 71K/uL Below low normal [id number] 150 - 480 [facility] MCHC 35.4g/dL Normal [id number] 31 - 36 [facility] HCT 33.9% Below low normal 309967596962 36 - 46 [facility] MCH 33PG Normal [id number] 27 - 34 [facility] BASOPHILS 1% Normal [id number] 0 - 2 [facility] GRANULOCYTES 68% Normal 318917981372 23 - 78 [facility] NUCLEATED RBC 0% Normal [id number] 0 - 0.2 [facility] EOSINOPHILS 9% Above high normal 489419844648 0 - 6 [facility] LYMPHS 13% Below low normal 371616801990 16 - 50 [facility] RBC 3.64M/uL Below low normal [id number] 4 - 5.4 [facility] IMMATURE PLATELET FRACTION 5.6% Normal 551953056304 1 - 7 [facility] GLYCOHEMOGLOBIN (A1C) 7.5% Above high normal 840013180425 4 - 5.6 [facility] MICROALBUMIN,URINE < 0.3 Normal [id number] [facility] CREATININE URINE 130.2 Normal [id number] [facility]ATIO Test not performed Normal 885349585860 - [address] [facility] VIT[facility]IN B12 1185pg/mL Above high normal [id number] 211 - 9 11 [facility] FOLIC ACID, SERUM 13.1ng/mL Normal [id number] 5.38 - 24 [facility] MAGNESIUM 1.91mg/dL Normal [id number] 1.6 - 2.6 [facility] CK 27U/L Below low normal 280453807427 34 - 171 [facility] GFRE 33 Below low normal 194453609452 60 - [facility] POTASSIUM SERUM 4.6mmol/L Normal [id number] 3.5 - 5.1 [facility] CALCIUM 9.8mg/dL Normal [id number] 8.7 - 10.4 [facility] AST (SGOT) 27U/L Normal [id number] 0 - 34 [facility] CHLORIDE 99mmol/L Normal [id number] 98 - 107 [facility] GLUCOSE 165mg/dL Above high normal 747436836750 74 - 106 [facility] CREATININE 1.69mg/dL Above high normal [id number] 0.55 - 1.02 [facility] ALT (SGPT) 21U/L Normal [id number] 10 - 49 [facility] ALKALINE PHOSPHATASE 73U/L Normal 357660779582 45 - 1 29 [facility] BUN/CREAT.RATIO 17.8 Normal 731089179743 [facility] SODIUM 133mmol/L Below low normal 203505303971 136 - 145 [facility] BILIRUBIN,TOTAL 1.9mg/dL Above high normal 094396180874 0.3 - 1.2 [facility] CO2 29mmol/L Normal 663973230380 20 - 31 [facility] BUN 30mg/dL Above high normal 682993132837 9 - 23 [facility] PROTEIN, TOTAL 6.6g/dL Normal [id number] 5.7 - 8.2 [facility] GLOBULIN 2.2g/dL Normal [id number] 2.2 - 3.5 [facility] ALBUMIN 4.4g/dL Normal [id number] 3.2 - 4.8 [facility] A/G RATIO 2g/dL Normal [id number] [facility] PATIENT FASTING? NO Normal [id number] [facility] TRIGLYCERIDE WITH LDLD REFLEX 137mg/dL Normal 961726049005 - 150 [facility] HDL 35mg/dL Below low normal [id number] 40 - 60 [facility] CHOLESTEROL 116mg/dL Normal 514812475290 - 200 [facility] LDL 54mg/dL Normal 859124006964 - 160 [facility] TSH WITH REFLEX T4 FREE 1.08uIU/mL Normal 545055093226 0.55 - 4.78 [facility] PLATELET COUNT 97K/uL Below low normal [id number] 150 - 480 [facility] EOSINOPHILS 9% Above high normal 527598218943 0 - 6 [facility] ABSOLUTE LYMPHS 1K/uL Below low normal [id number] 1.5 - 4.9 [facility] ABSOLUTE EOS 0.4K/uL Normal [id number] 0 - 0.7 [facility] IMMATURE PLATELET FRACTION 3.9% Normal [id number] 1 - 7 [facility] ABSOLUTE MONOS 0.6K/uL Normal [id number] 0.2 - 1.5 [facility] MCV 90fL Normal 812558686152 83 - 102 [facility] WBC 4.8K/uL Normal [id number] 3.7 - 10.3 [facility] NUCLEATED RBC 0% Normal [id number] 0 - 0.2 [facility] ABSOLUTE NUCLEATED RBC 0K/uL Normal [id number] 0 - 0.012 [facility] RBC 3.41M/uL Below low normal 491803586358 4 - 5.4 [facility] GRANULOCYTES 58% Normal [id number] 23 - 78 [facility] MPV 10fL Normal [id number] 8 - 12 [facility] MCH 32PG Normal 699400256435 27 - 34 [facility] HGB 11g/dL Below low normal 773491380283 12.1 - 15.7 [facility] LYMPHS 21% Normal 214995369154 16 - 50 [facility] BASOPHILS 1% Normal [id number] 0 - 2 [facility] RDW 15.4% Above high normal 976581896577 11.1 - 13.3 [facility] IMMATURE GRANULOCYTES 0% Normal 758419033595 0 - 0.45 [facility] ABSOLUTE GRANULOCYTES 2.8K/uL Normal [id number] 2.2 - 7.3 [facility] ABSOLUTE IMMATURE GRANULOCYTES 0K/uL Normal [id number] 0 - 0.3 [facility] ABSOLUTE BASO 0K/uL Normal [id number] 0 - 0.2 [facility] MCHC 35.7g/dL Normal [id number] 31 - 36 [facility] HCT 30.8% Below low normal [id number] 36 - 46 [facility] MONOCYTES 12% Normal [id number] 0 - 12 [facility] GLYCOHEMOGLOBIN (A1C) 7.9% Above high normal 415333018434 4 - 5.6 [facility] MICROALBUMIN,URINE < 0.3 Normal [id number] [facility] MICROALBUMIN RATIO Test not performed Normal [id number] - 30 [facility] CREATININE URINE 121.9 Normal [id number] [facility] MAGNESIUM 2.18mg/dL Normal [id number] 1.6 - 2.6 [facility] GFRE 36 Below low normal 260025522507 60 - [facility] CK 26U/L Below low normal [id number] 34 - 171 [facility] TSH WITH REFLEX T4 FREE 1.58uIU/mL Normal [id number] 0.55 - 4.78 [facility] CHOLESTEROL 144mg/dL Normal [id number] - 200 [facility] TRIGLYCERIDE 164mg/dL Above high normal 714321753699 - 150 [facility] LDL 77mg/dL Normal 346369489220 - 160 [facility] HDL 34mg/dL Below low normal 350801987724 40 - 60 [facility] VITAMIN B12 1535pg/mL Above high normal [id number] 211 - 9 11 [facility] FOLIC ACID, SERUM 14.2ng/mL Normal [id number] 5.38 - 24 [facility] CREATININE 1.56mg/dL Above high normal [id number] 0.55 - 1.02 [facility] ALBUMIN 4.5g/dL Normal 530498565720 3.2 - 4.8 [facility] CO2 29mmol/L Normal [id number] 20 - 31 [facility] POTASSIUM SERUM 4.9mmol/L Normal [id number] 3.5 - 5.1 [facility] CALCIUM 9.8mg/dL Normal [id number] 8.7 - 10.4 [facility] BUN/CREAT.RATIO 16.7 Normal 531066865544 [facility] BILIRUBIN,TOTAL 1.9mg/dL Above high normal 344175432115 0.3 - 1.2 [facility] GLUCOSE 151mg/dL Above high normal [id number] 74 - 106 [facility] ALT (SGPT) 43U/L Normal [id number] 10 - 49 [facility] SODIUM 132mmol/L Below low normal [id number] 136 - 145 [facility] BUN 26mg/dL Above high normal [id number] 9 - 23 [facility] CHLORIDE 97mmol/L Below low normal [id number] 98 - 107 [facility] PROTEIN, TOTAL 6.8g/dL Normal [id number] 5.7 - 8.2 [facility] GLOBULIN 2.3g/dL Normal [id number] 2.2 - 3.5 [facility] ALKALINE PHOSPHATASE 93U/L Normal [id number] 45 - 1 29 [facility] A/G RATIO 2g/dL Normal 553730281773 [facility] AST (SGOT) 33U/L Normal [id number] 0 - 34 [facility] PATIENT FASTING? YES Normal [id number] [facility] POCT GLUCOSE 212mg/dL Above high normal 392830421881 70 - 2 00 [facility] POCT GLUCOSE 350mg/dL Above high normal [id number] 70 - 2 00 [facility] POCT GLUCOSE 219mg/dL Above high normal [id number] 70 - 2 00 [facility] POCT GLUCOSE 280mg/dL Above high normal [id number] 70 - 2 00 [facility] POCT GLUCOSE 192mg/dL Normal [id number] 70 - 200 [facility] MAGNESIUM 1.9mg/dL Normal [id number] 1.8 - 3 [facility] POTASSIUM 4.7mmol/L Normal [id number] 3.6 - 5.1 [facility] SODIUM 134mmol/L Below low normal 447639957140 137 - 144 [facility] GLUCOSE 182mg/dL Normal [id number] 70 - 200 [facility] CREATININE 1.1mg/dL Normal [id number] 0.6 - 1.2 [facility] ANION GAP 6mmol/L Normal [id number] 3 - 11 [facility] BICARBONATE 25mmol/L Normal [id number] 23 - 32 [facility] CHLORIDE 103mmol/L Normal [id number] 100 - 111 [facility] CALCIUM, TOTAL 8.9mg/dL Normal [id number] 8.4 - 10.2 [facility] UREA NITROGEN 16mg/dL Normal [id number] 8 - 24 [facility] GLOMERULAR FILTRATION RATE ML/MIN/1.73 SQ M.PREDICTED 58mL/min/1.73m *2 Below low normal [id number] 60 - [facility] ABSOLUTE MONOCYTE CT. 0.510*3/uL Normal [id number] 0.2 - 0.8 [facility] MCH 32.8pg Normal [id number] 26 - 34 [facility] LYMPHOCYTE % 17.5% Below low normal [id number] 20 - 50 [facility] PLATELET COUNT 6210*3/uL Below low normal [id number] 150 - 440 [facility] IMMATURE GRANULOCYTE % 0.4% Normal [id number] 0 - 0.6 [facility] MCHC 35.1g/dL Normal [id number] 32 - [address] [facility] [address] 3.210*3/uL Normal [id number] 1.4 - 6.3 [facility] WHITE CELL COUNT 4.810*3/uL Normal [id number] 3.6 - 11 [facility] HEMATOCRIT 27.6% Below low normal [id number] 35 - 47 [facility] BASOPHILS % 0.2% Normal [id number] 0 - 2 [facility] MCV 93.2fL Normal [id number] 80 - [address] [facility] [address] 0.810*3/uL Normal [id number] 0.7 - 4.5 [facility] AUTO NRBC % 0% Normal [id number] 0 - 0 [facility] EOSINOPHIL % 5.8% Normal [id number] 0 - 6 [facility] RED CELL COUNT 2.9610*6/???L Below low normal [id number] 3 .8 - 5.[address] [facility] [address] 0.310*3/uL Normal [id number] 0 - 0.3 [facility] MONOCYTE % 9.8% Normal [id number] 4 - [address] [facility] [address] 010*3/uL Normal [id number] 0 - 0. 2 [facility] NEUTROPHIL % 66.3% Normal [id number] 40 - 70 [facility] RBC DISTRIBUTION WIDTH 14.3% Normal [id number] 11.6 - 14.8 [facility] HEMOGLOBIN 9.7g/dL Below low normal [id number] 12 - 16 [facility] POCT GLUCOSE 268mg/dL Above high normal 471108706817 70 - 2 00 [facility] POCT GLUCOSE 337mg/dL Above high normal 762592761340 70 - 2 00 [facility] POCT GLUCOSE 224mg/dL Above high normal [id number] 70 - 2 00 [facility] POCT GLUCOSE 121mg/dL Normal [id number] 70 - 200 [facility] FOLATE 9.5ng/mL Normal [id number] 7 - 31.4 [facility] VITAMIN B12 377pg/mL Normal [id number] [facility] IRON BINDING CAPACITY 360ug/dL Normal [id number] 260 - 490 [facility] IRON 74ug/dL Normal [id number] 28 - 170 [facility] IRON SATURATION (%) IN SER/PLAS 21% Normal [id number] [facility] FERRITIN 118ng/mL Normal [id number] 6 - 307 [facility] PHOSPHORUS 3.2mg/dL Normal [id number] 2.4 - 4.8 [facility] MAGNESIUM 1.7mg/dL Below low normal 335408914719 1.8 - 3 [facility] CREATININE 1.1mg/dL Normal [id number] 0.6 - 1.2 [facility] BICARBONATE 26mmol/L Normal [id number] 23 - 32 [facility] UREA NITROGEN 12mg/dL Normal [id number] 8 - 24 [facility] SODIUM 133mmol/L Below low normal [id number] 137 - 144 [facility] CHLORIDE 100mmol/L Normal [id number] 100 - 111 [facility] POTASSIUM 4.4mmol/L Normal [id number] 3.6 - 5.1 [facility] GLUCOSE 115mg/dL Normal [id number] 70 - 200 [facility] GLOMERULAR FILTRATION RATE ML/MIN/1.73 SQ M.PREDICTED 58mL/min/1.73m *2 Below low normal [id number] 60 - [facility] CALCIUM, TOTAL 9.1mg/dL Normal [id number] 8.4 - 10.2 [facility] ANION GAP 7mmol/L Normal [id number] 3 - 11 [facility] RED CELL COUNT 3.0810*6/???L Below low normal [id number] 3 .8 - 5.2 [facility] IMMATURE GRANULOCYTE % 0.3% Normal [id number] 0 - 0.6 [facility] NEUTROPHIL % 63% Normal [id number] 40 - 70 [facility] WHITE CELL COUNT 3.610*3/uL Normal [id number] 3.6 - 11 [facility] AUTO NRBC % 0% Normal [id number] 0 - 0 [facility] MONOCYTE % 10.2% Normal [id number] 4 - [address] [facility] [address] 0.710*3/uL Normal [id number] 0.7 - 4.[address] [facility] [address] 0.410*3/uL Normal [id number] 0.2 - 0.[address] [facility] [address] 2.310*3/uL Normal [id number] 1.4 - 6.3 [facility] MCV 96.1fL Normal [id number] 80 - 100 [facility] RBC DISTRIBUTION WIDTH 14.5% Normal [id number] 11.6 - 14.8 [facility] EOSINOPHIL % 8% Above high normal [id number] 0 - 6 [facility] HEMATOCRIT 29.6% Below low normal [id number] 35 - 47 [facility] PLATELET COUNT 5410*3/uL Below low normal [id number] 150 - [address] [facility] [address] 010*3/uL Normal [id number] 0 - 0. [address] [facility] [address] 0.310*3/uL Normal [id number] 0 - 0.3 [facility] BASOPHILS % 0.6% Normal [id number] 0 - 2 [facility] LYMPHOCYTE % 17.9% Below low normal [id number] 20 - 50 [facility] MCH 33.1pg Normal [id number] 26 - 34 [facility] MCHC 34.5g/dL Normal [id number] 32 - 36 [facility] HEMOGLOBIN 10.2g/dL Below low normal [id number] 12 - 16 [facility] SMEAR PREPARATION Completed Normal [id number] [facility] RETICULOCYTES/100 ERYTHROCYTES IN BLOOD BY AUTOMATED COUNT 4.4% Above high normal [id number] 0.8 - 2.5 [facility] LACTIC ACID 0.9mmol/L Normal [id number] 0.5 - 1.9 [facility] POCT GLUCOSE 213mg/dL Above high normal 815925366267 70 - 2 00 [facility] LACTIC ACID 2.4mmol/L Above high normal 508506055143 0.5 - 1 .9 [facility] POCT GLUCOSE 90mg/dL Normal [id number] 70 - 200 [facility] POCT GLUCOSE 107mg/dL Normal [id number] 70 - 200 [facility] SMEAR PREPARATION Completed Normal [facility] RETICULOCYTES/100 ERYTHROCYTES IN BLOOD BY AUTOMATED COUNT 4.2% Above high normal [id number] 0.8 - 2.5 [facility] LACTIC ACID 2.2mmol/L Above high normal [id number] 0.5 - 1 .9 [facility] AUTO NRBC % 0% Normal [id number] 0 - 0 [facility] MCH 33.3pg Normal [id number] 26 - 34 [facility] LYMPHOCYTE % 20.5% Normal [id number] 20 - 50 [facility] HEMOGLOBIN 9.6g/dL Below low normal [id number] 12 - 16 [facility] MONOCYTE % 10.5% Normal [id number] 4 - [address] [facility] [address] 0.910*3/uL Normal [id number] 0.7 - 4.5 [facility] IMMATURE GRANULOCYTE % 0.4% Normal [id number] 0 - 0.6 [facility] MCV 93.1fL Normal [id number] 80 - 100 [facility] EOSINOPHIL % 4.8% Normal [id number] 0 - 6 [facility] WHITE CELL COUNT 4.610*3/uL Normal 061503922677 3.6 - 11 [facility] RED CELL COUNT 2.8810*6/???L Below low normal [id number] 3 .8 - 5.[address] [facility] [address] 0.510*3/uL Normal [id number] 0.2 - 0.8 [facility] RBC DISTRIBUTION WIDTH 14.3% Normal [id number] 11.6 - 14.8 [facility] HEMATOCRIT 26.8% Below low normal [id number] 35 - [address] [facility] [address] 2.910*3/uL Normal [id number] 1.4 - 6.[address] [facility] [address] 010*3/uL Normal [id number] 0 - 0. 2 [facility] NEUTROPHIL % 63.4% Normal [id number] 40 - 70 [facility] BASOPHILS % 0.4% Normal [id number] 0 - 2 [facility] MCHC 35.8g/dL Normal [id number] 32 - [address] [facility] [address] 0.210*3/uL Normal [id number] 0 - 0.3 [facility] PLATELET COUNT 5610*3/uL Below low normal [id number] 150 - 440 [facility] POCT GLUCOSE 115mg/dL Normal [id number] 70 - 200 [facility] POCT GLUCOSE 60mg/dL Below low normal 716900946461 70 - 20 0 [facility] FOLATE 9.4ng/mL Normal 042758618321 7 - 31.4 [facility] VITAMIN B12 355pg/mL Normal [id number] [facility] IRON SATURATION (%) IN SER/PLAS 23% Normal [id number] [facility] IRON 82ug/dL Normal [id number] 28 - 170 [facility] IRON BINDING CAPACITY 362ug/dL Normal [id number] 260 - 490 [facility] FERRITIN 110ng/mL Normal [id number] 6 - 307 [facility] MCV 93.8fL Normal [id number] 80 - 100 [facility] HEMATOCRIT 28.6% Below low normal [id number] 35 - [address] [facility] [address] 4.110*3/uL Normal [id number] 1.4 - 6.3 [facility] WHITE CELL COUNT 5.910*3/uL Normal [id number] 3.6 - 11 [facility] LYMPHOCYTE % 15% Below low normal [id number] 20 - 50 [facility] NEUTROPHIL % 68.3% Normal [id number] 40 - 70 [facility] RED CELL COUNT 3.0510*6/???L Below low normal [id number] 3 .8 - 5.2 [facility] MCH 33.4pg Normal [id number] 26 - 34 [facility] HEMOGLOBIN 10.2g/dL Below low normal [id number] 12 - 16 [facility] MONOCYTE % 10.6% Normal [id number] 4 - 12 [facility] PLATELET COUNT 6710*3/uL Below low normal [id number] 150 - 440 [facility] EOSINOPHIL % 5.6% Normal [id number] 0 - 6 [facility] AUTO NRBC % 0% Normal [id number] 0 - 0 [facility] [address]. 0.610*3/uL Normal [id number] 0.2 - 0.8 [facility] RBC DISTRIBUTION WIDTH 14.3% Normal [id number] 11.6 - 14.[address] [facility] [address] 0.310*3/uL Normal [id number] 0 - 0.[address] [facility] [address] 0.910*3/uL Normal [id number] 0.7 - 4.[address] [facility] [address] 010*3/uL Normal 791645419861 0 - 0. 2 [facility] MCHC 35.7g/dL Normal [id number] 32 - 36 [facility] BASOPHILS % 0.2% Normal 0 - 2 [facility] IMMATURE GRANULOCYTE % 0.3% Normal [id number] 0 - 0.6 [facility] LACTIC ACID 2.3mmol/L Above high normal 684158091801 0.5 - 1 .9 [facility] POTASSIUM 4mmol/L Normal [id number] 3.6 - 5.1 [facility] BICARBONATE 27mmol/L Normal [id number] 23 - 32 [facility] GLUCOSE 62mg/dL Below low normal 049072679043 70 - 200 [facility] CHLORIDE 100mmol/L Normal [id number] 100 - 111 [facility] GLOMERULAR FILTRATION RATE ML/MIN/1.73 SQ M.PREDICTED 52mL/min/1.73m *2 Below low normal [id number] 60 - [facility] CALCIUM, TOTAL 9.2mg/dL Normal 417731352914 8.4 - 10.2 C [facility] SODIUM 136mmol/L Below low normal 832568187205 137 - 144 [facility] UREA NITROGEN 19mg/dL Normal [id number] 8 - 24 [facility] ANION GAP 9mmol/L Normal 293312252090 3 - 11 [facility] CREATININE 1.2mg/dL Normal [id number] 0.6 - 1.2 [facility] PROTEIN TOTAL 5.5g/dL Below low normal 731637387450 6.2 - 8.1 [facility] BILIRUBIN, TOTAL 2.5mg/dL Above high normal 577979361281 0. 1 - 1.2 [facility] ALT (SGPT) 26U/L Normal [id number] 8 - 39 [facility] ALBUMIN, AUTOMATED 3.6g/dL Below low normal 393329863071 3 .8 - 5.3 [facility] ALKALINE PHOSPHATASE 47U/L Normal [id number] 39 - 1 13 [facility] AST (SGOT) 28U/L Normal [id number] 17 - 35 [facility] BILIRUBIN, DIRECT 0.8mg/dL Above high normal [id number] 0 - 0.5 [facility] PH OF URINE 6.5 Normal 5 - 8 [facility] LEUKOCYTE ESTERASE Negative Normal [id number] - [facility] UROBILINOGEN, URINE 1EU/dL Normal [id number] 0.2 - 1 [facility] SPECIFIC GRAVITY 1.02 Normal [id number] - [facility] BACTERIA None Seen Normal [id number] - [facility] CLARITY OF URINE Clear Normal [id number] - [facility] HEMOGLOBIN, URINE Negative Normal [id number] - [facility] BILIRUBIN, URINE Negative Normal [id number] - [facility] EPITHELIAL CELLS None Seen Normal 460221568617 - [facility] WBC 0-5 Normal [id number] 0 - 5 [facility] PROTEIN QUAL Negative Normal [id number] - [facility] NITRITE Negative Normal [id number] - [facility] KETONES URINE Negative Normal [id number] - [facility] GLUCOSE QUAL Negative Normal [id number] - [facility] COLOR OF URINE Yellow Normal 533771090498 - [facility] RBC 0-2 Normal [id number] 0 - 2 [facility] SYSMEX CASTS 0-2 Normal [id number] - [facility] POCT GLUCOSE 192mg/dL Normal 759107292721 70 - 200 [facility] LACTIC ACID 5mmol/L Above high normal 514110543778 0.5 - 1 .9 [facility] POCT GLUCOSE 217mg/dL Above high normal [id number] 70 - 2 00 [facility] CANNABINOID Negative Normal - [facility] COCAINE METABOLITES URINE Negative Normal - [facility] OPIATES, URINE Negative Normal - [facility] BENZODIAZEPINE, URINE Negative Normal - [facility] ANTIBODY SCREEN NEG Normal C [facility] RH TYPE IN BLOOD NEG Normal [facility] ABO GROUP (TYPE) IN BLOOD A Normal [facility] BILIRUBIN, DIRECT 0.8mg/dL Above high normal 0 - 0.5 [facility] ETHANOL 10mg/dL Normal [facility] PROTEIN TOTAL 6.5g/dL Normal 6.2 - 8.1 [facility] BILIRUBIN, TOTAL 2.4mg/dL Above high normal 0. 1 - 1.2 [facility] ALT (SGPT) 32U/L Normal 8 - 39 [facility] CHLORIDE 100mmol/L Normal 100 - 111 [facility] CREATININE 1.5mg/dL Above high normal 0.6 - 1. 2 [facility] UREA NITROGEN 25mg/dL Above high normal 8 - 2 4 [facility] CALCIUM, TOTAL 10.1mg/dL Normal 8.4 - 10.2 [facility] ANION GAP 11mmol/L Normal 3 - 11 [facility] ALKALINE PHOSPHATASE 59U/L Normal 39 - 1 13 [facility] AST (SGOT) 36U/L Above high normal 17 - 35 [facility] POTASSIUM 4.7mmol/L Normal 3.6 - 5.1 [facility] GLUCOSE 174mg/dL Normal 70 - 200 [facility] BICARBONATE 25mmol/L Normal 23 - 32 [facility] GLOMERULAR FILTRATION RATE ML/MIN/1.73 SQ M.PREDICTED 40mL/min/1.73m *2 Below low normal 60 - [facility] ALBUMIN, AUTOMATED 4.2g/dL Normal [id number] 3.8 - 5. 3 [facility] SODIUM 136mmol/L Below low normal [id number] 137 - 144 [facility] LACTIC ACID 2.2mmol/L Above high normal [id number] 0.5 - 1 .9 [facility] ACTIVATED PARTIAL THROMBOPLASTIN TIME IN PPP BY COAGULATION ASSAY 27.9seconds Normal [id number] 25.1 - 36.5 [facility] INR 1.3ratio Above high normal [id number] 0.9 - 1.1 [facility] PROTHROMBIN TIME (PT) 14.2seconds Above high normal [id number] 10.4 - [address] [facility] [address] 0.510*3/uL Normal [id number] 0.2 - 0.[address] [facility] [address] 0.410*3/uL Above high normal [id number] 0 - 0.3 [facility] EOSINOPHIL % 7.7% Above high normal [id number] 0 - 6 [facility] AUTO NRBC % 0% Normal [id number] 0 - 0 [facility] HEMOGLOBIN 11.3g/dL Below low normal [id number] 12 - 16 [facility] RBC DISTRIBUTION WIDTH 13.9% Normal [id number] 11.6 - 14.[address] [facility] [address] 0.810*3/uL Normal [id number] 0.7 - 4.5 [facility] WHITE CELL COUNT 4.910*3/uL Normal [id number] 3.6 - 11 [facility] NEUTROPHIL % 64.2% Normal [id number] 40 - 70 [facility] [address] 010*3/uL Normal [id number] 0 - 0. 2 [facility] MCV 89.2fL Normal [id number] 80 - 100 [facility] LYMPHOCYTE % 16.7% Below low normal [id number] 20 - 50 [facility] MONOCYTE % 10.2% Normal [id number] 4 - 12 [facility] RED CELL COUNT 3.4310*6/???L Below low normal [id number] 3 .8 - 5.2 [facility] IMMATURE GRANULOCYTE % 0.8% Above high normal [id number] 0 - 0.6 [facility] HEMATOCRIT 30.6% Below low normal [id number] 35 - 47 [facility] MCH 32.9pg Normal [id number] 26 - [address] [facility] [address] 3.210*3/uL Normal [id number] 1.4 - 6.3 [facility] MCHC 36.9g/dL Above high normal 32 - 36 [facility] PLATELET COUNT 8310*3/uL Below low normal 150 - 440 [facility] BASOPHILS % 0.4% Normal [id number] 0 - 2 [facility] History of Medication Use Medication Directions Dispensed Refills Start Date End Date Status oxyCODONE-Acetaminop hen 5-325 MG Oral Tablet oxyCODONE-Acetaminop hen 5-325 MG Oral Tablet QTY: 12 tablet Days: 3 Refills: 0 Written: 11/23/24 Patient Instructions: Take 1 tablet every 4-6 hours as needed for severe pain 5 11/27/19 25 completed Cyclobenzaprine HCl 10 MG Oral Tablet Cyclobenzaprine HCl 10 MG Oral Tablet QTY: 20 tablet Days: 7 Refills: 0 Written: 11/23/24 Patient Instructions: 1 tablet 3 times per day as needed 5 active lidocaine (ASPERCREME) 4 % patch Apply 3 patches topically in the morning. 4 04/16/20 24 active methocarbamoL (ROBAXIN) 750 mg tablet Take 1 tablet (750 mg total) by mouth 4 (four) times a day as needed for muscle spasms for up to 7 days. 4 03/29/20 24 active senna (SENOKOT) 8.6 mg tablet Take 2 tablets (17.2 mg total) by mouth nightly. 4 active carvedilol (COREG) 6.25 MG tablet Take 1 tablet (6.25 mg total) by mouth 2 (two) times a day with meals. 3 active simvastatin (ZOCOR) 10 mg tablet Take 10 mg by mouth nightly. 1 active glyBURIDE-metFORMIN 5-500 MG Oral Tablet glyBURIDE-metFORMIN 5-500 MG Oral Tablet QTY: 0 tablet Days: 0 Refills: 0 Written: 03/05/21 Patient Instructions: 1 active traMADol HCl 50 MG Oral Tablet traMADol HCl 50 MG Oral Tablet QTY: 24 tablet Days: 10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
--- OUTSIDE RECORDS SUMMARY | 2025-01-10 16:28 | XMS_ITS | Encounter Summary ---
Author Organization [facility] Address [address] [place] [address] Care Team Providers Care Rodent Control Worker Name Role Phone Carolina Park MD Primary Care Provider Carolina Park MD Unavailable Carolina Park MD Unavailable [phone] Carolina Park MD Unavailable Armani Michelle MD Unavailable Armani Michelle MD Unavailable Pranav Jones MD Unavailable [phone] Steffany Kirkpatrick RN Unavailable [phone] Carla Talbert MD Primary Care Provider [phone] Encounter Details Date Type Department Care Team (Late st Contact Info) Description 06/19/2018 Scanned Document [facility] [address] [address] Carolina Park MD [address] [address] Social History Tobacco Use Types [...] Description 01/30/2025 2:30 PM EDT Office Visit [facility] [place] [address] [place] [address] Deniz Jean Baptiste MD [address] [address] documented as of this encounter Visit Diagnoses Not on filedocumented in this encounter Care Teams Rodent Control Worker Relationship Specialty Start Date End Date Carolina Park MD [address] [place], [place] [phone] PCP - General Internal Medicine 03/25/15 11/02/18 Carla Talbert MD [address] [place] [address] PCP - General Internal Medicine 07/14/22 Carolina Park MD [address] [place], [place] [phone] Internal Medicine 03/25/15 11/02/18 Carolina Park MD [address] [place] [id number] Internal Medicine 03/25/15 11/02/18 Carolina Park MD [address] [place] [address] Internal Medicine 03/25/15 11/02/18 Armani Michelle MD [address] [place] [address] Gastroenterology 01/13/18 11/02/18 Armani Michelle MD [address] [place] [address] Gastroenterology 11/03/18 Pranav Jones MD [address] [place] [address] Medical Oncology 07/09/22 Steffany Kirkpatrick, RN [address] [place] [address] Registered Nurse 07/09/22 documented as of this encounter
--- OUTSIDE RECORDS SUMMARY | 2025-01-10 16:28 | XMS_ITS | Encounter Summary ---
Author Organization [facility] Address [address] [place] [address] Care Team Providers Care Drum Barker Operator Name Role Phone Carolina Park MD Primary Care Provider [phone] Carolina Park MD Unavailable Carolina Park MD Unavailable Carolina Park MD Unavailable Armani Michelle MD Unavailable [phone] Armani Michelle MD Unavailable [phone] Pranav Jones MD Unavailable [phone] Steffany Kirkpatrick RN Unavailable [phone] Carla Talbert MD Primary Care Provider [phone] Reason for Visit * Reason Comments Medication Refill Encounter Details Date Type Department Care Team (Late st Contact Info) Description 08/31/2017 [facility]ill [facility] [address] [address] Carolina Park MD [address] [address] Essential hypertension Social History Tobacco [...] Description 01/30/2025 2:30 PM EDT Office Visit [facility] [address] [address] Deniz Jean Baptiste MD [address] [place] [address] documented as of this encounter Visit Diagnoses Diagnosis Essential hypertension Unspecified essential hypertension documented in this encounter Care Teams Drum Barker Operator Relationship Specialty Start Date End Date Carolina Park MD [address] [place] [address] PCP - General Internal Medicine 03/25/15 11/02/18 Carla Talbert MD [address] [place] [address] PCP - General Internal Medicine 07/14/22 Carolina Park MD [address] [place] [address] Internal Medicine 03/25/15 11/02/18 Carolina Park MD [address] [place] [address] Internal Medicine 03/25/15 11/02/18 Carolina Park MD [address] [place], [place] [phone] Internal Medicine 03/25/15 11/02/18 Armani Michelle MD [address] [place] [address] Gastroenterology 01/13/18 11/02/18 Armani Michelle MD [address] [place] [address] Gastroenterology 11/03/18 Pranav Jones MD [address] [place] [address] Medical Oncology 07/09/22 Steffany Kirkpatrick, RN [address] [place] [address] Registered Nurse 07/09/22 documented as of this encounter
--- OUTSIDE RECORDS SUMMARY | 2025-01-10 16:28 | XMS_ITS | Encounter Summary ---
Author Organization [facility] Address [address] [place] [address] Care Team Providers Care Field Software Engineer Name Role Phone Carolina Park MD Primary Care Provider Carolina Park MD Unavailable Carolina Park MD Unavailable [phone] Carolina Park MD Unavailable Armani Michelle MD Unavailable [phone] Armani Michelle MD Unavailable [phone] Pranav Jones MD Unavailable [phone] Steffany Kirkpatrick RN Unavailable [phone] Carla Talbert MD Primary Care Provider [phone] Encounter Details Date Type Department Care Team (Late st Contact Info) Description 04/22/2015 Scanned Document [facility] [address] [address] Provider, Generic Social History Tobacco [...] Description 01/30/2025 2:30 PM EDT Office Visit [facility] Trans[facility] Program & [facility] [place] [address] [place] [address] Deniz Jean Baptiste MD [address] [place] [address] [address] [place] [address] documented as of this encounter Visit Diagnoses Not on filedocumented in this encounter Care Teams Field Software Engineer Relationship Specialty Start Date End Date Carolian Park MD [address] [place] [address] PCP - General Internal Medicine 03/25/15 11/02/18 Crala Talbert MD [address] [place] [address] [place] [address] PCP - General Internal Medicine 07/14/22 Carolina Park MD [address] [place] [address] Internal Medicine 03/25/15 11/02/18 Carolina Park MD [address] [place] [address] Internal Medicine 03/25/15 11/02/18 Carolina Park MD [address] [place] [address] Internal Medicine 03/25/15 11/02/18 Armani Michelle MD [address] [place] [phone] Gastroenterology 01/13/18 11/02/18 Armani Michelle MD [address] [address] Gastroenterology 11/03/18 Pranav Jones MD [address] [place] [address] Medical Oncology 07/09/22 Steffany Kirkpatrick, RN [address] [place] [address] Registered Nurse 07/09/22 documented as of this encounter
--- OUTSIDE RECORDS SUMMARY | 2025-01-10 16:28 | XMS_ITS | Encounter Summary ---
Author Organization [facility] Address [address] [place] [address] Care Team Providers Care Actuarial Internship Name Role Phone Armani Michelle MD Unavailable [phone] Pranav Jones MD Unavailable [phone] Steffany Kirkpatrick RN Unavailable [phone] Carla Talbert MD Primary Care Provider [phone] Encounter Details Date Type Department Care Team (Late st Contact Info) Description 06/27/2023 Scanned Document [facility] 85 [facility] [address] [place] [address] Deniz Jean Baptiste MD 85 [facility] [address] [place], [place] [id number] Social History Tobacco Use Types Packs/Day Years [...] [place] [facility] [place] [address] [place] [address] Deniz Jean Baptiste MD 85 [facility] [address] [place] [address] documented as of this encounter Visit Diagnoses Not on filedocumented in this encounter Care Teams Actuarial Internship Relationship Specialty Start Date End Date Carla Talbert MD [address] [place] [address] PCP - General Internal Medicine 07/14/22 Armani Michelle MD [address] [address] Gastroenterology 11/03/18 Pranav Jones MD [address] [place] [address] Medical Oncology 07/09/22 Steffany Kirkpatrick, RN 80 [place] [address] Registered Nurse 07/09/22 documented as of this encounter
--- OUTSIDE RECORDS SUMMARY | 2025-01-10 16:28 | XMS_ITS | Encounter Summary ---
Author Organization [facility] Address [address] [place] [address] Care Team Providers Care Director And Professor Name Role Phone Carolina Park MD Primary Care Provider [phone] Carolina Park MD Unavailable Carolina Park MD Unavailable Carolina Park MD Unavailable Armani Michelle MD Unavailable Armani Michelle MD Unavailable Pranav Jones MD Unavailable [phone] Steffany Kirkpatrick RN Unavailable [phone] Carla Talbert MD Primary Care Provider [phone] Reason for Visit * Reason Comments Medication Refill Encounter Details Date Type Department Care Team (Late st Contact Info) Description 11/21/2017 Refill [facility] [address] [address] Carolina Park MD [address] [address] Uncontrolled type 2 diabetes mellitus without complication, without long-term current use of insulin (HCC) Social [...] 01/30/2025 2:30 PM EDT Office Visit [facility] [address] [address] Deniz Jean Baptiste MD [address] [place] [address] documented as of this encounter Visit Diagnoses Diagnosis Uncontrolled type 2 diabetes mellitus without complication, without long-term current use of insulin documented in this encounter Care Teams Director And Professor Relationship Specialty Start Date End Date Carolina Park MD [address] [place] [address] PCP - General Internal Medicine 03/25/15 11/02/18 Carla Talbert MD [address] [place] [address] PCP - General Internal Medicine 07/14/22 Carolina Park MD [address] [place] [phone] Internal Medicine 03/25/15 11/02/18 Carolina Park MD [address] [phone] Internal Medicine 03/25/15 11/02/18 Carolina Park MD [address] [address] Internal Medicine 03/25/15 11/02/18 Armani Michelle MD [address] [place] [address] Gastroenterology 01/13/18 11/02/18 Armani Michelle MD [address] [place] [address] Gastroenterology 11/03/18 Pranav Jones MD [address] [place] [address] Medical Oncology 07/09/22 Steffany Kirkpatrick, RN 80 [place] [address] Registered Nurse 07/09/22 documented as of this encounter
--- OUTSIDE RECORDS SUMMARY | 2025-01-10 16:28 | XMS_ITS | Encounter Summary ---
Author Organization [facility] Address [address] [place] [address] Care Team Providers Care Final Tester Name Role Phone Carolina Park MD Primary Care Provider Carolina Park MD Unavailable [phone] Carolina Park MD Unavailable Carolina Park MD Unavailable Armani Michelle MD Unavailable [phone] Armani Michelle MD Unavailable Pranav Jones MD Unavailable [phone] Steffany Kirkpatrick RN Unavailable [phone] Carla Talbert MD Primary Care Provider [phone] Encounter Details Date Type Department Care Team (Late st Contact Info) Description 09/28/2016 Scanned Document [facility] [address] [place] [address] Provider, Nino, [address] [place] [address] Social History Tobacco Use Types Packs/Day Years [...] Description 01/30/2025 2:30 PM EDT Office Visit [facility] [address] [address] Deniz Jean Baptiste MD [address] [address] documented as of this encounter Visit Diagnoses Not on filedocumented in this encounter Care Teams Final Tester Relationship Specialty Start Date End Date Carolina Park MD [address] [place], [place] [phone] PCP - General Internal Medicine 03/25/15 11/02/18 Carla Talbert MD [address] [place] [address] PCP - General Internal Medicine 07/14/22 Carolina Park MD [address] [place], [place] [phone] Internal Medicine 03/25/15 11/02/18 Carolina Park MD [address] [place] [address] Internal Medicine 03/25/15 11/02/18 Carolina Park MD [address] [place] [address] Internal Medicine 03/25/15 11/02/18 Armani Michelle MD [address] [place], [place] [phone] Gastroenterology 01/13/18 11/02/18 Armani Michelle MD [address] [place], [place] [phone] Gastroenterology 11/03/18 Pranav Jones MD [address] [place] [address] Medical Oncology 07/09/22 Steffany Kirkpatrick, RN [address] [place] [address] Registered Nurse 07/09/22 documented as of this encounter
--- OUTSIDE RECORDS SUMMARY | 2025-01-10 16:28 | XMS_ITS | Encounter Summary ---
Author Organization [facility] Address [address] [place] [address] Care Team Providers Care Radiography Technician Name Role Phone Armani Michelle MD Unavailable [phone] Pranav Jones MD Unavailable [phone] Steffany Kirkpatrick RN Unavailable [phone] Carla Talbert MD Primary Care Provider [phone] Encounter Details Date Type Department Care Team (Late st Contact Info) Description 04/28/2023 Scanned Document [facility] & [facility] 85 [facility] [address] [place] [address] Provider, Nino, [address] [place] [address] Social History Tobacco Use Types Packs/Day Years [...] Description 01/30/2025 2:30 PM EDT Office Visit [facility] [place] [address] [place] [address] Deniz Jean Baptiste MD 85 [facility] [address] [place] [address] documented as of this encounter Visit Diagnoses Not on filedocumented in this encounter Care Teams Radiography Technician Relationship Specialty Start Date End Date Carla Talbert MD [address] [place] [address] PCP - General Internal Medicine 07/14/22 Armani Michelle MD 21 [facility] 100 [place] [address] Gastroenterology 11/03/18 Pranav Jones MD [address] [place] [address] Medical Oncology 07/09/22 Steffany Kirkpatrick, RN 80 [place] [address] Registered Nurse 07/09/22 documented as of this encounter
--- OUTSIDE RECORDS SUMMARY | 2025-01-10 16:28 | XMS_ITS | Encounter Summary ---
Author Organization [facility] Address [address] [place] [address] Care Team Providers Care Track Fitter Name Role Phone Armani Michelle MD Unavailable [phone] Pranav Jones MD Unavailable [phone] Steffany Kirkpatrick RN Unavailable [phone] Carla Talbert MD Primary Care Provider [phone] Encounter Details Date Type Department Care Team (Late st Contact Info) Description 03/14/2023 Telephone [facility] Trans[facility] Program & [facility] 85 [facility] [address] [place] [address] Amelia SimonsATTAPULGUS, [place] [address] [place], [place] [phone] Social History Tobacco Use Types Packs/Day Years Used Date Smoking Tobacco: Never Smokeless Tobacco: Never Alcohol Use Standard Drinks/Week Comments No 0 (1 standard drink = 0.6 oz pur e alcohol) Non drinker/ no alcohol use AUDIT-C Answer Date Recorded Q1: How often do you have a drink containing alcohol? Never 01/18/2023 Q2: How many drinks containi ng alcohol do you have on a typical day when you are drinking? Patient does not drink Q3: How often do you have si x or more drinks on one occasion? Never 01/18/2023 Comments No Sex and Gender Information Value [...] Hospital Trans[facility] [place] [address] [place] [address] Deniz Jean Baptiste MD 85 [facility] [address] [place] [address] documented as of this encounter Visit Diagnoses Not on filedocumented in this encounter Care Teams Track Fitter Relationship Specialty Start Date End Date Carla Talbert MD [address] [place] [address] PCP - General Internal Medicine 07/14/22 Armani Michelle MD 21 [facility] [address] [place] [address] Gastroenterology 11/03/18 Pranav Jones MD [address] [place] [address] Medical Oncology 07/09/22 Steffany Kirkpatrick, RN [address] [place] [address] Registered Nurse 07/09/22 documented as of this encounter
--- OUTSIDE RECORDS SUMMARY | 2025-01-10 16:28 | XMS_ITS | Encounter Summary ---
Author Organization [facility] Address [address] [place] [address] Care Team Providers Care Jig Builder Name Role Phone Carla Talbert MD Primary Care Provider [phone] Shawna Moore RN Unavailable Unavaila ble Lalit Schneider DO Unavailable Encounter Details Date Type Department Care Team (Late st Contact Info) Description 04/11/2024 [place] [address] Vane Klein, ANA ROSA COUNT INCLUDES [facility] [address] [place] [address] Thrombocytopenia (HCC) (Primary Dx) Social History Tobacco Use Types Packs/Day Years Used Date Smoking Tobacco: Never Smokeless Tobacco: Never Alcohol Use Standard Drinks/Week Comments Never 0 [...] any time in the past 12 m [facility], were you homeless or living in a [facility] (including now)? No 03/12/2024 Comments No Sex and Gender Information Value Date Recorded Sex Assigned at Not on file Legal Sex Female 3:06 AM EST Gender Identity Not on file Sexual Orientation Straight 05/05/2021 1: 51 PM EDT COVID-19 Exposure Response Date Recorded In the last 10 days, have yo u been in contact with someone who was confirmed or suspected to have Coronavirus/COVID-19? No / Unsure 03/21/2024 2:15 PM EDT documented as of this encounter Plan of Treatment Upcoming Encounters Date Type Department Care Team (Late st Contact Info) Description 04/23/2025 8:30 AM EDT Office Visit [facility] Mukul Vasquez [facility]- Hematology Oncology [address] [place] [address] Carolina Kelly MD [address] [place] [id number] documented as of this encounter Procedures Procedure Name Priority Date/Time Associated Diagnosis Comments AP CONSULTATION Routine 04/11/2024 3:02 PM EDT Thrombocytopenia (HCC) documented in this encounter Results * AP Consultation (04/11/2024 3:02 PM EDT) Case Report ANATOMIC PATHOLOGY ?Case: [id number] ? Authorizing Provider: ??Carolina Kelly MD ?Collected: ? 04/11/2024 1502 ? Ordering Location: ? [facility] ? Received: ?04/12/2024 1029 ? Pathologist: ? Stoney Gunn MD ? Specimen: ?Bone marrow, Outside Slide Consultation, [facility], [id number], 12 ? slides ? 04/12/2024 4:49 PM EDT [facility] Final Diagnosis A-C. BONE MARROW, LEFT ILIAC CREST, ASPIRATE, BIOPSY, AND CLOT SECTION ([facility], [id number]): - NORMOCELLULAR BONE MARROW WITH MATURING TRILINEAGE HEMATOPOIESIS. 04/12/2024 4:49 PM EDT [facility] at 1649 EDT Microscopic Description Aspirate: - The aspirate is cellular with adequate spicules. - Maturing trilineage hematopoiesis is evident. - Erythroid maturation is normoblastic. - Complete myeloid maturation to neutrophils is evident. - Megakaryocytes are adequate in number and highly variable in appearance. - Interspersed small lymphocytes and fewer plasma cells are also present. - A 300-cell differential cell count shows: <1% blasts, 30% erythroid precursors, 65% maturing myeloid precursors, 1% eosinophils, 2% monocytes, 2% lymphocytes and 1% plasma cells. - The M:E ratio is 2.2:1.0. - Iron stain: Reticuloendothelial storage iron is decreased. Ring sideroblasts are not identified. Biopsy: - The biopsy is adequate for evaluation. - The marrow is normocellular for age (40% ratio of hematopoietic cells to fat). - Maturing trilineage hematopoiesis is present. - Megakaryocytes are adequate in number and variable in appearance. Special Stains (performed on biopsy with appropriate positive controls): - Reticulin: Slightly increased loose network of fine reticulin fibers. Immunohistochemistry was not provided for review. Cytogenetic study ([employer]): Per report, normal karyotype. FLOW CYTOMETRY: Per report, no immunophenotypic evidence of a lymphoproliferative disorder. 04/12/2024 4:49 PM EDT [facility] Gross Description Received from Department of Pathology, [facility], [address] [place] [id number], are 12 slides labeled [id number], which are accompanied by a Pathology report identifying the patient as Luz Maria Gray, and are further labeled as [facility] Pathology Consultation [id number] A1-1 thru A1-12. 04/12/2024 4:49 PM EDT [facility] Embedded Images 04/12/2024 4:49 PM EDT [facility] Bone Marrow Bone marrow source / Unknown Non-blood Collection / Unknown 04/11/2024 3:02 PM EDT 04/12/2024 10:29 AM EDT Carolina Kelly MD LAB PATHOLOGY (NO SOURCE) Final Result [facility] [address] [place] [address], documented in this encounter Visit Diagnoses Diagnosis Thrombocytopenia (HCC)- Primary Unspecified thrombocytopenia documented in this encounter Care Teams Jig Builder Relationship Specialty Start Date End Date Carla Talbert MD [address] [place] [address] PCP - General Family Medicine 05/05/21 Shawna Moore, ANA ROSA [address] [place] [address] Nurse Navigator Nursing 04/06/24 Lalit Schneider DO [address] [place] [address] Fellow Hematology and Oncology 04/25/2409/03 documented as of this encounter
--- OUTSIDE RECORDS SUMMARY | 2025-01-10 16:28 | XMS_ITS | Encounter Summary ---
Author Organization [facility] Address [address] [place] [address] Care Team Providers Care Segregator Name Role Phone Armani Michelle MD Unavailable Pranav Jones MD Unavailable [phone] Steffany Kirkpatrick RN Unavailable [phone] Carla Talbert MD Primary Care Provider [phone] Encounter Details Date Type Department Care Team (Late st Contact Info) Description 01/07/2025 Scanned Document [facility] Transplant Program & [facility] [address] [facility] [address] [place] [address] Provider, Nino, [address] [place] [address] Social History Tobacco Use Types Packs/Day Years [...] PM EDT Office Visit [facility] [place] [address] [place] [address] Deniz Jean Baptiste MD 85 [facility] [address] [place] [address] documented as of this encounter Visit Diagnoses Not on filedocumented in this encounter Care Teams Segregator Relationship Specialty Start Date End Date Carla Talbert MD [address] [place] [address] PCP - General Internal Medicine 07/14/22 Armani Michelle MD [address] [facility] [address] [place] [address] Gastroenterology 11/03/18 Pranav Jones MD [address] [place] [address] Medical Oncology 07/09/22 Steffany Kirkpatrick, RN [address] [place] [address] Registered Nurse 07/09/22 documented as of this encounter
--- OUTSIDE RECORDS SUMMARY | 2025-01-10 16:28 | XMS_ITS | Encounter Summary ---
Author Organization [facility] Address [address] [place] [address] Care Team Providers Care Director Of Counseling Name Role Phone Carolina Park MD Primary Care Provider [phone] Carolina Park MD Unavailable Carolina Park MD Unavailable [phone] Carolina Park MD Unavailable Armani Michelle MD Unavailable Amrani Michelle MD Unavailable [phone] Pranav Jones MD Unavailable [phone] Steffany Kirkpatrick RN Unavailable [phone] Carla Talbert MD Primary Care Provider + [phone] Encounter Details Date Type Department Care Team (Late st Contact Info) Description 04/11/2015 Scanned Document [facility] [address] [address] Provider, Generic Social History Tobacco [...] Hospital Transplant Program & [facility] [place] [address] [place] [address] Deniz Jean Baptiste MD [address] [place] [address] [address] [place] [address] documented as of this encounter Visit Diagnoses Not on filedocumented in this encounter Care Teams Director Of Counseling Relationship Specialty Start Date End Date Carolina Park MD [address] [place] [address] PCP - General Internal Medicine 03/25/15 11/02/18 Carla Talbert MD [address] [place] [address] [place] [address] PCP - General Internal Medicine 07/14/22 Carolina Park MD [address] [place] [address] Internal Medicine 03/25/15 11/02/18 Carloina Park MD [address] [place] [address] Internal Medicine 03/25/15 11/02/18 Carolina Park MD [address] [place] [address] Internal Medicine 03/25/15 11/02/18 Armani Michelle MD [address] [place] [phone] Gastroenterology 01/13/18 11/02/18 Armani Michelle MD [address] [address] Gastroenterology 11/03/18 Pranav Jones MD [address] [place] [address] Medical Oncology 07/09/22 Steffany Kirkpatrick, RN [address] [place] [address] Registered Nurse 07/09/22 documented as of this encounter
--- OUTSIDE RECORDS SUMMARY | 2025-01-10 16:28 | XMS_ITS | Encounter Summary ---
Author Organization [facility] Address [address] [place] [address] Care Team Providers Care Application Internship Name Role Phone Armani Michelle MD Unavailable Pranav Jones MD Unavailable [phone] Steffany Kirkpatrick RN Unavailable [phone] Carla Talbert MD Primary Care Provider + [phone] Encounter Details Date Type Department Care Team (Late st Contact Info) Description 03/09/2023 Telephone [facility] Transplant Program & [facility] [address] [address] Neelima Shaikh MA 85 [facility] [address] [place] [address] Social History Tobacco Use Types [...] Telephone Encounter - Neelima Shaikh MA - 03/09/2023 3:30 PM EDT Received a call from Jenifer from [employer] [facility] whom is calling regarding a authorization for ursodilol. They are requesting chart note, with diagnoses and labs and treatment to be faxed to [phone] documented in this encounter Plan of Treatment Upcoming Encounters Date Type Department Care Team (Late st Contact Info) Description 01/30/2025 2:30 PM EDT Office Visit [facility] Transplant Program & [facility] [address] [place], [place] [phone] Deniz Jean Baptiste MD [address] [address] documented as of this encounter Visit Diagnoses Not on filedocumented in this encounter Care Teams Application Internship Relationship Specialty Start Date End Date Carla Talbert MD [address] [place] [address] PCP - General Internal Medicine 07/14/22 Armani Michelle MD [address] [address] Gastroenterology 11/03/18 Pranav Jones MD [address] [place] [address] Medical Oncology 07/09/22 Steffany Kirkpatrick RN [address] [place] [address] Registered Nurse 07/09/22 documented as of this encounter
--- OUTSIDE RECORDS SUMMARY | 2025-01-10 16:28 | XMS_ITS | Encounter Summary ---
Author Organization [facility] Address [address] [place] [address] Care Team Providers Care Parking Patroller Name Role Phone Carolina Park MD Primary Care Provider [phone] Carolina Park MD Unavailable Carolina Park MD Unavailable [phone] Carolina Park MD Unavailable Armani Michelle MD Unavailable Armani Michelle MD Unavailable Pranav Jones MD Unavailable [phone] Steffany Kirkpatrick RN Unavailable [phone] Carla Talbert MD Primary Care Provider [phone] Encounter Details Date Type Department Care Team (Late st Contact Info) Description 01/11/2018 Scanned Document [facility] [address] [address] Carolina Park MD [address] [address] Social History Tobacco Use Types [...] Hospital Transplant Program [facility] [place] [address] [place] [address] Deniz Jean Baptiste MD [address] [address] documented as of this encounter Visit Diagnoses Not on filedocumented in this encounter Care Teams Parking Patroller Relationship Specialty Start Date End Date Carolina Park MD [address] [place], [place] [phone] PCP - General Internal Medicine 03/25/15 11/02/18 Carla Talbert MD [address] [place] [address] PCP - General Internal Medicine 07/14/22 Carolina Park MD [address] [place], [place] [phone] Internal Medicine 03/25/15 11/02/18 Carolina Park MD [address] [place] [id number] Internal Medicine 03/25/15 11/02/18 Carolina Park MD [address] [place] [address] Internal Medicine 03/25/15 11/02/18 Armani Michelle MD [address] [place] [address] Gastroenterology 01/13/18 11/02/18 Armani Michelle MD [address] [place] [address] Gastroenterology 11/03/18 Pranav Jones MD [address] [place] [address] Medical Oncology 07/09/22 Steffany Kirkpatrick, RN [address] [place] [address] Registered Nurse 07/09/22 documented as of this encounter
[2025-01-10 18:32] LABS: Troponin-I High Sensitivity < 2.7 ng/L (<3.5-17.0)
[2025-01-10 18:40] LABS: D Dimer High Sensitivity 290 NG/ML
[2025-01-10] MEDS: iohexoL 350 MG/ML 100 ML INFUS..BTL IV (19:54)
[2025-01-10] MEDS: Lactated Ringers 1,000 ML 999 ML IV ×2 (20:01→21:07)
== END 2025-01-10 22:33 | disposition home or self-care (01) ==
PROVIDERS: Registered Nurse Emergency; Emergency Provider Emergency Medicine; PCP Hospitalist
DX: R07.89 Other chest pain (principal); R06.00 Dyspnea, unspecified; R06.02 Shortness of breath
CPT/HCPCS: 36415; 71046; 71275; 80053; 83735; 84484; 85025; 85379; 93005; 96360; 96361; 99284; 99285; J7120; Q9967

== ENCOUNTER → 2025-01-10 14:44 | Outpatient (BNV) | payer OTHER, SELFPAY | PROVIDERS: Emergency Provider Emergency Medicine; PCP Hospitalist; Visit Provider Internal Medicine | DX: R07.9 Chest pain, unspecified (principal) | CPT/HCPCS: 93010 ==

== ENCOUNTER → 2025-01-10 15:02 | Outpatient (BNV) | payer SELFPAY | PROVIDERS: PCP Hospitalist; Visit Provider Radiology Diagnostic Radiology | DX: S22.41XS Multiple fractures of ribs, right side, sequela (principal); S22.42XS Multiple fractures of ribs, left side, sequela; R16.1 Splenomegaly, not elsewhere classified | CPT/HCPCS: 71275 ==

== ENCOUNTER 2025-02-04 13:46 | Outpatient (AMB) | payer OTHER, SELFPAY ==
--- NOTE | 2025-02-04 14:30 | A.OFFVIS_ITS ---
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 Still having some chest pain and shortness of breath w/ exertion. Pt states she had Echo done recently @ [facility] Asset Protection Greeter Required: No Accompanied by: Self / Same As Patient Allergies Penicillins Allergy (Verified 02/04/25 14:33) Anaphylaxis sitagliptin [From Januvia] Allergy (Verified 02/04/25 14:33) Unknown Medication List - Last Reconciled 02/04/25 by Tyesha Mohr NP-C atorvastatin 10 mg PO BEDTIME fluticasone propionate 50 mcg/actuation (Flonase Allergy Relief) 1 spray intranasal DAILY levothyroxine 112 mcg PO DAILY mometasone 0.1% 0 appl topical spironolactone 50 mg PO DAILY tirzepatide (Mounjaro) mg subcut valacyclovir 4,000 mg PO ONCE HPI HPI 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 She ruled out for PE and ACS. She was found to have mild anemia which can contribute to shortness of breath. She did see her PCP in follow-up and an echocardiogram was done. The results of that study are not available at this visit. She was referred here for follow-up. Today she presents for cardiology consultation. She denies any known cardiac history beyond a new finding of mitral regurgitation as seen on recent echo. She tells me she has been getting some sharp substernal chest discomfort as well as shortness of breath with activity. At times she will have some lightheadedness as well. No presyncope, syncope, falls. No shortness of breath at rest, PND, orthopnea or edema. She will get intermittent heart palpitations which cause her some concern. 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 Her maternal aunt had an VA in her 70s. No known cardiac history in her parents or siblings. Nonsmoker and no alcohol use. No history of hypertension. She is on atorvastatin for cholesterol and meds for type 2 diabetes, 1st diagnosed in 2007. [facility] Social History Alcohol intake: never Patient Tobacco Use Status: Never used Tobacco Review of Systems Const All systems reviewed & are unremarkable except as noted in HPI and below Denies chills, Denies fever(s), Denies frequent falls, Denies weakness, Denies weight gain and Denies weight loss Card Details: heart palpitations Reports chest pain, Reports chest pain at rest, Denies chest pain with activity, Denies syncope, Denies rapid heart rate, Denies irregular heart rhythm, Denies leg edema, Denies dyspnea, Denies orthopnea and Denies other (loss of consciousness) Resp Denies dyspnea GI Denies hematochezia and Denies change in stool character Musc Denies abnormal gait, Denies muscle weakness, Denies numbness, Denies radiating pain into limb and Denies tingling Neuro Denies abnormal gait, Denies syncope, Denies frequent falls, Denies numbness, Denies tingling and Denies weakness Physical Exam Vital Signs: Last Vital Signs Pulse 101 H 02/04/25 14:31 BP 118/68 02/04/25 14:31 Pulse Ox 99 02/04/25 14:31 Oxygen Delivery Method Room Air 02/04/25 14:31 BMI result Body Mass Index 30.5 Const General: cooperative, healthy appearing, comfortable and no acute distress Orientation/consciousness: patient oriented x3 Neck Neck: Yes normal visual inspection and Yes no JVD Resp Effort & Inspection: normal respiratory effort Auscultation: clear to auscultation bilaterally, no rales, no rhonchi and no wheezes Cardio Rate: regular rate Rhythm: regular rhythm Heart sounds: S1 normal heart sound present, S2 normal heart sound present, no gallops, no murmurs and no rubs Neuro General: patient oriented x3 Extrem General: Yes normal to inspection, No no pedal edema and No calf tenderness Psych Appearance: grossly normal Mental Status: mental status grossly normal Speech and movement: Normal speech and movement present Assessment & Plan Assessment & Plan (1) Precordial chest pain: Code(s): R07.2 - Precordial pain Category: Medical Plan: Reports of sharp chest discomfort occurring randomly and with physical activity. Also with shortness of breath with activity and intermittent lightheadedness. ER evaluation for symptoms, negative ACS and PE. Recent echocardiogram completed however results are not available at this visit. Will reach out to the ordering provider. Cardiac risks of hyperlipidemia, diabetes, age. EKG done 01/10/2025 shows normal sinus rhythm, no acute ST or T-wave abnormalities, rate 86. Will check stress echocardiogram to evaluate for ischemia. Signs and symptoms of angina reviewed with her. Emergency care if needed for symptoms. Avoid activities that cause your symptoms. Cardiology follow-up when results are available. (2) Shortness of breath: Code(s): R06.02 - Shortness of breath Category: Medical Plan: As above (3) Palpitations: Code(s): R00.2 - Palpitations Category: Medical Plan: Report of heart palpitations that she believes to be extrasystoles with short runs. Pulse is regular on examination today. Will check Holter monitor to assess for arrhythmia. Maintain good hydration, avoidance of caffeinated beverages reviewed. (4) Hospital discharge follow-up: Code(s): Z09 - Encounter for follow-up examination after completed treatment for conditions other than malignant neoplasm Category: Medical Plan: Reviewed Plan During our discussion, I informed the patient of the potential for underlying cardiac issues needing exploration based on her reported symptoms. I recommended a stress echocardiogram to evaluate if an area of myocardial ischemia is causing her symptoms and provided details on the procedure. Additionally, the application of a Holter monitor for 72-hour arrhythmia analysis was discussed, emphasizing its non-invasive nature and ease of use. I offered reassurance about maintaining existing medications for now, explained risk factors for potential complications, and discussed lifestyle modifications to minimize stress on her heart. Given her multiple responsibilities, we discussed moderating physical workload Impacting her symptoms, and she is considering temporarily transitioning to less physically demanding responsibilities at work. Orders: Orders CA echo stress exercise Today R06.02 - Shortness of breath, R07.2 - Precordial pain ECG 3 day holter monitor Today R00.2 - Palpitations Patient Instructions: - Schedule and attend stress test and Holter monitor testing as advised. - Remain well-hydrated - Notify this office of change or increase in your symptoms. - Monitor symptoms and seek medical attention if they worsen or if new symptoms develop. - Consider discussing temporary modifications to work responsibilities to reduce physical stress. - Maintain current medication regimen unless advised otherwise during follow-up. Patient was informed and verbally consented to the use of an ambient scribe for clinic note documentation during this visit. Visit time spent on chart review, interview, assessment, orders, documentation. Coding Level of Care Code New Pt Level 4 (47843) Complex EM visit Add On G2211 Diagnoses Precordial chest pain R07.2 Shortness of breath R06.02 Palpitations R00.2 Hospital discharge follow-up Z09 Time Spent (min) 30
[2025-02-04 14:31] VITALS: BP 118/68; PULSE 101; O2SAT 99; BMI 30.5
--- OUTSIDE RECORDS SUMMARY | 2025-02-04 15:01 | XMS_ITS | Encounter Summary ---
Author Organization Formerly [facility] Address [address] [place] [address] Care Team Providers Care Licensed Appraiser Name Role Phone Carolina Park MD Primary Care Provider Carolina Park MD Unavailable Carolina Park MD Unavailable [phone] Carolina Park MD Unavailable Armani Michelle MD Unavailable [phone] Armani Michelle MD Unavailable Pranav Jones MD Unavailable Steffany Kirkpatrick RN Unavailable [phone] Carla Talbert MD Primary Care Provider [phone] Reason for Visit * Reason Comments Medication Refill Encounter Details Date Type Department Care Team (Late st Contact Info) Description 08/31/2017 Refill [facility] [address] [id number] Carolina Park MD [address] [address] Essential hypertension Social History Tobacco [...] as of this encounter Plan of Treatment Not on file documented as of this encounter Visit Diagnoses Diagnosis Essential hypertension Unspecified essential hypertension documented in this encounter Care Teams Licensed Appraiser Relationship Specialty Start Date End Date Carolina Park MD [address] [place] [phone] PCP - General Internal Medicine 03/25/15 11/02/18 Carla Talbert MD [address] [place] [id number] PCP - General Internal Medicine 07/14/22 Carolina Park MD [address] [place] [address] Internal Medicine 03/25/15 11/02/18 Carolina Park MD [address] [place] [phone] Internal Medicine 03/25/15 11/02/18 Carolina Park MD [address] [place] [id number] Internal Medicine 03/25/15 11/02/18 Armani Michelle MD [address] [place] [id number] Gastroenterology 01/13/18 11/02/18 Armani Michelle MD [facility] [address] [place] [address] Gastroenterology 11/03/18 Pranav Jones MD [address] [id number] Medical Oncology 07/09/22 Steffany Kirkpatrick, RN [address] [place] [address] Registered Nurse 07/09/22 documented as of this encounter
== END 2025-02-04 15:09 | disposition home or self-care (01) ==
PROVIDERS: PCP Hospitalist; Visit Provider Nurse Practitioner Family
DX: R07.2 Precordial pain (principal); R06.02 Shortness of breath; R00.2 Palpitations; Z09 Encounter for follow-up examination after completed treatment for conditions other than malignant neoplasm
CPT/HCPCS: 99204

== ENCOUNTER → 2025-02-04 13:46 | Outpatient (BNVA) | payer OTHER, SELFPAY | PROVIDERS: PCP Hospitalist; Visit Provider Nurse Practitioner Family ==

== ENCOUNTER → 2025-03-22 10:24 | Outpatient (REF) | payer OTHER, SELFPAY ==
--- NOTE | 2025-03-22 10:27 | HM_ITS ---
Conclusion: 1. Baseline was normal sinus rhythm with average heart of 80 beats per minute 2. No significant pauses or arrhythmias noted 3. Patient marked the event 8 times without any symptoms reported correlating with sinus rhythm MTDD
--- NOTE | 2025-03-22 10:27 | CA_ITS ---
Acquisition Time: 2025-03-22 11:26:59 Total Exercise Time: 00:05:06 Test Indications: CP, SOB Medications: SEE H&P Protocol: QUINCY Max HR: 150 BPM 94% of Pred: 159 BPM Max BP: 160/70 mmHG Max Work Load: 7.0 METS Exercise stress test with exercise 5 mins 6 sec sof Quincy Protocol, achieving 94% MPHR, with reports of 3/10 mid chest pressure at baseline that got p to 5, with SOB and dizziness, with right sided jaw, neck and lower back pain in early recovery, with isolated PVCs, with normotenisve response to exercise. Without any EKG changes meeting criteria for ischemia. In recovery, jaw, neck and back pain resolved. Chest pressure retruned to baseline. Breathing improved and dizziness resolved. Echo images obtained by tech at rest and post peak exercise. Definity contrast utilized. Test reviewed with Dr. Gentile. Referred By: Tyesha Mohr Electronically Signed By: Jerzy Teresa
--- OUTSIDE RECORDS SUMMARY | 2025-03-22 10:48 | XMS_ITS | Clinical Summary ---
Author Organization [facility] Address [address] [place] [address] Care Team Providers Care Manager Of Compliance Name Role Phone Carolina Park MD Primary Care Provider [phone] Surgical History Surgery Date Site/Laterality Comments APPENDECTOMY PROCEDURE:APPENDECTOMY CARPAL TUNNEL RELEASE PROCEDURE:CARPAL TUNNEL RELEASE TOTAL ABDOMINAL HYSTERECTOMY PROCEDURE:TOTAL ABDOMINAL HYSTERECTOMY TRIGGER FINGER RELEASE PROCEDURE:TRIGGER FINGER RELEASE;COMMENT:3rd finger HAND SURGERY 01/03/2018 Left PROCEDURE:PALMAR FASCIECTOMY;COMMENT:Procedure: FASCIECTOMY PALMAR; Surgeon: Timothy Espino MD; Location: [facility]; Service: Orthopedics; Laterality: Left; Medical History Medical History Date Comments Diabetes mellitus, type II ( CMS/HCC V24, CMS/HCC V28) DX:Diabetes mellitus, type I I ([facility]) Hypertension DX:Hypertension Dupuytren's contracture of left [...] Vaccines (1 of 2) 2013 COVID-19 Vaccine (1 - 2023-2 5 season) 2024 Influenza Vaccine (#1) 2025 RSV Immunization Adult Patie nts (1 [...] age to complete this topic Care Teams Manager Of Compliance Relationship Specialty Start Date End Date Carolina Park MD [address] [place] [address] PCP - General Family Medicine 01/03/18
--- OUTSIDE RECORDS SUMMARY | 2025-03-22 10:48 | XMS_ITS ---
Author Name [facility]ISP Organization Unknown Results Test Name/Text Value Interpretation Date Range Source SPEP/RADHA INTERPRETATION See note Normal 01/14/2025 [facility] GAMMA GLOBULIN (PEP) 0.73 g/dL Normal 01/09/2025 0.7 - 1. 74 [facility] ALPHA 2 GLOBULIN (PEP) 0.8 g/dL Normal 01/09/2025 0.73 - 1.45 [facility] ALPHA 1 GLOBULIN (PEP) 0.17 g/dL Normal 01/09/2025 0.18 - 0.34 [facility] BETA GLOBULIN (PEP) 1.06 g/dL Normal 01/09/2025 0.75 - 1.35 [facility] ALBUMIN (PEP) 3.94 g/dL Normal 01/09/2025 3.34 - 4.42 [facility] PROTEIN, TOTAL 6.7 g/dL Normal 01/07/2025 6.4 - [facility] GFRE 43.0 Below low normal 01/07/2025 60 - [facility] PTH INTACT 26.5 pg/mL Normal 01/07/2025 18.4 - 80 [facility] VITAMIN D (25-HYDROXY) 72.0 ng/mL Normal 01/07/2025 30 - 100 [facility] URIC ACID 5.3 mg/dL Normal 01/07/2025 3.7 - 9.2 [facility] POTASSIUM SERUM 4.6 mmol/L Normal 01/07/2025 3.5 - 5.1 [facility] CHLORIDE 101.0 mmol/L Normal 01/07/2025 98 - 107 [facility] MH CALCIUM 10.5 mg/dL Above high normal 01/07/2025 8.7 - 10.4 [facility] SODIUM 134.0 mmol/L Below low normal 01/07/2025 136 - 145 [facility] BUN 24.0 mg/dL Above high normal 01/07/2025 9 - 23 [facility] ALBUMIN 4.5 g/dL Normal 01/07/2025 3.2 - 4.8 [facility] GLUCOSE 327.0 mg/dL Above high normal 01/07/2025 74 - 106 [facility] CO2 25.0 mmol/L Normal 01/07/2025 20 - 31 [facility] CREATININE 1.32 mg/dL Above high normal 01/07/2025 0.55 - 1.02 [facility] PHOSPHOROUS 4.2 mg/dL Normal 01/07/2025 2.4 - 5.1 [facility] PATIENT FASTING? YES Normal 01/07/2025 [facility] PROTEIN, TOTAL, RANDOM URINE 10.0 mg/dL Normal 01/11/2025 5 - 24 [facility] GAM[facility]LOBULINS 0.0 % Normal 01/11/2025 - [facility] ALPHA-1 GLOBULIN 0.0 % Normal 01/11/2025 - [facility] PROTEIN/CREATININE RATIO 90.0 Normal 01/11/2025 24 - 184 [facility] AB[facility] PROTEIN BAND 1 SEE BELOW Normal 01/11/2025 - [facility] INTERPRETATION: SEE BELOW Normal 01/11/2025 - [facility] ALBUMIN 100.0 % Normal 01/11/2025 - [facility] ALPHA-2 GLOBULIN 0.0 % Normal 01/11/2025 - CT [facility] CREATININE, RANDOM URINE 111.0 mg/dL Normal 01/11/2025 20 - 275 [facility] BETA GLOBULIN 0.0 % Normal 01/11/2025 - [facility] eGFR 32.0 Critically abnormal 01/11/2025 - [facility] CYSTATIN C 1.84 mg/L Critically abnormal 01/11/2025 0.52 - 1.14 [facility] LAMBDA LIGHT CHAIN, FREE, S 18.8 mg/L Normal 01/11/2025 5.7 - 26.3 [facility] KAPPA LIGHT CHAIN, FREE, S 23.4 mg/L Critically abnormal 01/11/2025 3.3 - 19.4 [facility] KAPPA/LAMBDA, FREE RATIO 1.24 Normal 01/11/2025 0.26 - 1.65 [facility] GLYCOHEMOGLOBIN (A1C) 7.5 % Above high normal 01/07/2025 4 - 5.6 [facility] EPI CELLS 1+ Normal 01/07/2025 [facility] RBC 1.0 /HPF Above high normal 01/07/2025 0 - 0 [facility] BACTERIA 1+ Critically abnormal 01/07/2025 - [facility] WBC 1.0 /HPF Above high normal 01/07/2025 0 - 0 C [facility] KETONES Negative Normal 01/07/2025 - [facility] LEUK. ESTERASE Negative Normal 01/07/2025 - [facility] BILIR[facility]IN Negative Normal 01/07/2025 - [facility] UROBILINOGEN 0.2 mg/dL Normal 01/07/2025 - [facility] NITRITE Negative Normal 01/07/2025 - [facility] BLOOD Negative Normal 01/07/2025 - [facility] PH 5.5 Normal 01/07/2025 5 - 8 [facility] GLUCOSE >=1000 Critically abnormal 01/07/2025 - [facility] COLOR Yellow Normal 01/07/2025 - [facility] SPECIFIC GRAVITY 1.025 Normal 01/07/2025 1.005 - 1.03 [facility] PROTEIN Negative Normal 01/07/2025 - [facility] APPEARANCE Clear Normal 01/07/2025 - [facility] MICROALBUMIN RATIO Test not performed Normal 01/07/2025 - 30 [facility] MICROALBUMIN,URINE < 0.3 Normal 01/07/2025 [facility] CREATININE URINE 102.0 Normal 01/07/2025 [facility] ABSOLUTE BASO 0.0 K/uL Normal 01/07/2025 0 - 0.2 [facility]H IMMATURE GRANULOCYTES 0.0 % Normal 01/07/2025 0 - 0.4 5 [facility] ABSOLUTE LYMPHS 0.6 K/uL Below low normal 01/07/2025 1.5 - 4.9 [facility] ABSOLUTE NUCLEATED RBC 0.0 K/uL Normal 01/07/2025 0 - 0.012 [facility] MCV 93.0 fL Normal 01/07/2025 83 - 102 [facility] HGB 12.0 g/dL Below low normal 01/07/2025 12.1 - 15.7 [facility] MONOCYTES 9.0 % Normal 01/07/2025 0 - 12 [facility] MPV 10.0 fL Normal 01/07/2025 8 - 12 [facility] ABSOLUTE IMMATURE GRANULOCYTES 0.0 K/uL Normal 01/07/2025 0 - 0.3 [facility] RDW 15.9 % Above high normal 01/07/2025 11.1 - 13.3 [facility] ABSOLUTE MONOS 0.4 K/uL Normal 01/07/2025 0.2 - 1.5 [facility] ABSOLUTE EOS 0.4 K/uL Normal 01/07/2025 0 - 0.7 CTPM MH WBC 4.6 K/uL Normal 01/07/2025 3.7 - 10.3 [facility] ABSOLUTE GRANULOCYTES 3.1 K/uL Normal 01/07/2025 2.2 - 7 .[facility] PLATELET COUNT 71.0 K/uL Below low normal 01/07/2025 150 - 4 80 [facility] MCHC 35.4 g/dL Normal 01/07/2025 31 - 36 [facility] HCT 33.9 % Below low normal 01/07/2025 36 - 46 [facility] MCH 33.0 PG Normal 01/07/2025 27 - 34 [facility] BASOPHILS 1.0 % Normal 01/07/2025 0 - 2 [facility] GRANULOCYTES 68.0 % Normal 01/07/2025 23 - 78 [facility] NUCLE[facility] RBC 0.0 % Normal 01/07/2025 0 - 0.2 [facility] MMH EOSINOPHILS 9.0 % Above high normal 01/07/2025 0 - 6 [facility] LYMPHS 13.0 % Below low normal 01/07/2025 16 - 50 [facility] RBC 3.64 M/uL Below low normal 01/07/2025 4 - 5.4 [facility] IMMATURE PLATELET FRACTION 5.6 % Normal 01/07/2025 1 - 7 [facility] GLYCOHEMOGLOBIN (A1C) 7.5 % Above high normal 12/26/2024 4 - 5.6 [facility] MICROALBUMIN,URINE < 0.3 Normal 12/26/2024 [facility] CREATININE URINE 130.2 Normal 12/26/2024 [facility] MICROALBUMIN RATIO Test not performed Normal 12/26/2024 - 30 [facility] VITAMIN B12 1185.0 pg/mL Above high normal 12/26/2024 211 - 911 [facility] FOLIC ACID, SERUM 13.1 ng/mL Normal 12/26/2024 5.38 - 24 [facility] MAGNESIUM 1.91 mg/dL Normal 12/26/2024 1.6 - 2.6 [facility] CK 27.0 U/L Below low normal 12/26/2024 34 - 171 [facility] GFRE 33.0 Below low normal 12/26/2024 60 - CT [facility] POTASSIUM SERUM 4.6 mmol/L Normal 12/26/2024 3.5 - 5.1 CT [facility] CALCIUM 9.8 mg/dL Normal 12/26/2024 8.7 - 10.4 [facility] AST (SGOT) 27.0 U/L Normal 12/26/2024 0 - 34 [facility] CHLORIDE 99.0 mmol/L Normal 12/26/2024 98 - 107 [facility] H GLUCOSE 165.0 mg/dL Above high normal 12/26/2024 74 - 106 [facility] CREATININE 1.69 mg/dL Above high normal 12/26/2024 0.55 - 1.02 [facility] ALT (SGPT) 21.0 U/L Normal 12/26/2024 10 - 49 [facility] ALKALINE PHOSPHATASE 73.0 U/L Normal 12/26/2024 45 - 129 [facility] BUN/CREAT.RATIO 17.8 Normal 12/26/2024 [facility]P [facility] SODIUM 133.0 mmol/L Below low normal 12/26/2024 136 - 145 [facility] BILIRUBIN,TOTAL 1.9 mg/dL Above high normal 12/26/2024 0.3 - 1.2 [facility] CO2 29.0 mmol/L Normal 12/26/2024 20 - 31 [facility] H BUN 30.0 mg/dL Above high normal 12/26/2024 9 - 23 [facility] PROTEIN, TOTAL 6.6 g/dL Normal 12/26/2024 5.7 - 8.2 [facility] GLOBULIN 2.2 g/dL Normal 12/26/2024 2.2 - 3.5 [facility] ALBUMIN 4.4 g/dL Normal 12/26/2024 3.2 - 4.8 [facility] A/G RATIO 2.0 g/dL Normal 12/26/2024 CTPMM PATIENT FASTING? NO Normal 12/26/2024 CT [facility] TRIGLYCERIDE WITH LDLD REFLEX 137.0 mg/dL Normal 12/26/2024 - 150 [facility] HDL 35.0 mg/dL Below low normal 12/26/2024 40 - 60 C [facility] CHOLESTEROL 116.0 mg/dL Normal 12/26/2024 - 200 [facility]P [facility] LDL 54.0 mg/dL Normal 12/26/2024 - 160 [facility] TSH WITH REFLEX T4 FREE 1.08 uIU/mL Normal 12/26/2024 0.55 - 4.78 [facility] PLATELET COUNT 97.0 K/uL Below low normal 12/26/2024 150 - 4 80 [facility] EOSINOPHILS 9.0 % Above high normal 12/26/2024 0 - 6 [facility] ABSOLUTE LYMPHS 1.0 K/uL Below low normal 12/26/2024 1.5 - 4.9 [facility] ABSOLUTE EOS 0.4 K/uL Normal 12/26/2024 0 - 0.7 CTPM IMMATURE PLATELET FRACTION 3.9 % Normal 12/26/2024 1 - 7 [facility] ABSOLUTE MONOS 0.6 K/uL Normal 12/26/2024 0.2 - 1.5 [facility] MCV 90.0 fL Normal 12/26/2024 83 - 102 [facility] WBC 4.8 K/uL Normal 12/26/2024 3.7 - 10.3 [facility] NUCLEATED RBC 0.0 % Normal 12/26/2024 0 - [facility] ABS[facility]LEATED RBC 0.0 K/uL Normal 12/26/2024 0 - 0.012 CTPMM RBC 3.41 M/uL Below low normal 12/26/2024 4 - 5.4 CT [facility] GRANULOCYTES 58.0 % Normal 12/26/2024 23 - 78 CTPM MPV 10.0 fL Normal 12/26/2024 8 - 12 [facility] MCH 32.0 PG Normal 12/26/2024 27 - 34 [facility] HGB 11.0 g/dL Below low normal 12/26/2024 12.1 - 15.7 [facility] LYMPHS 21.0 % Normal 12/26/2024 16 - 50 [facility] BASOPHILS 1.0 % Normal 12/26/2024 0 - 2 [facility] RDW 15.4 % Above high normal 12/26/2024 11.1 - 13.3 [facility] IMMATURE GRANULOCYTES 0.0 % Normal 12/26/2024 0 - 0.4 5 [facility] ABSOLUTE GRANULOCYTES 2.8 K/uL Normal 12/26/2024 2.2 - 7 .3 [facility] ABSOLUTE IMMATURE GRANULOCYTES 0.0 K/uL Normal 12/26/2024 0 - 0.3 [facility] ABSOLUTE BASO 0.0 K/uL Normal 12/26/2024 0 - 0.2 [facility] MMH MCHC 35.7 g/dL Normal 12/26/2024 31 - 36 [facility] HCT 30.8 % Below low normal 12/26/2024 36 - 46 [facility] MONOCYTES 12.0 % Normal 12/26/2024 0 - 12 [facility] GLYCOHEMOGLOBIN (A1C) 7.9 % Above high normal 12/16/2024 4 - 5.6 [facility] MICROALBUMIN,URINE < 0.3 Normal 12/15/2024 [facility] MICROALBUMIN RATIO Test not performed Normal 12/15/2024 - 30 [facility] CREATININE URINE 121.9 Normal 12/15/2024 CT [facility] MAGNESIUM 2.18 mg/dL Normal 12/15/2024 1.6 - 2.6 [facility] GFRE 36.0 Below low normal 12/15/2024 60 - CT [facility] CK 26.0 U/L Below low normal 12/15/2024 34 - 171 CT [facility] TSH WITH REFLEX T4 FREE 1.58 uIU/mL Normal 12/15/2024 0.55 - 4.78 [facility] CHOLESTEROL 144.0 mg/dL Normal 12/15/2024 - 200 [facility] MMH TRIGLYCERIDE 164.0 mg/dL Above high normal 12/15/2024 - 150 [facility] LDL 77.0 mg/dL Normal 12/15/2024 - 160 [facility] HDL 34.0 mg/dL Below low normal 12/15/2024 40 - 60 C [facility] VITAMIN B12 1535.0 pg/mL Above high normal 12/15/2024 211 - 911 [facility] FOLIC ACID, SERUM 14.2 ng/mL Normal 12/15/2024 5.38 - 24 [facility] CREATININE 1.56 mg/dL Above high normal 12/15/2024 0.55 - 1.02 [facility] ALBUMIN 4.5 g/dL Normal 12/15/2024 3.2 - 4.8 [facility] CO2 29.0 mmol/L Normal 12/15/2024 20 - [facility] POTASSIUM SERUM 4.9 mmol/L Normal 12/15/2024 3.5 - 5.1 CT [facility] CALCIUM 9.8 mg/dL Normal 12/15/2024 8.7 - 10.4 [facility] BUN/CREAT.RATIO 16.7 Normal 12/15/2024 [facility] BILIRUBIN,TOTAL 1.9 mg/dL Above high normal 12/15/2024 0.3 - 1.2 [facility] GLUCOSE 151.0 mg/dL Above high normal 12/15/2024 74 - 106 [facility] ALT (SGPT) 43.0 U/L Normal 12/15/2024 10 - 49 [facility] SODIUM 132.0 mmol/L Below low normal 12/15/2024 136 - 145 [facility] BUN 26.0 mg/dL Above high normal 12/15/2024 9 - 23 [facility] CHLORIDE 97.0 mmol/L Below low normal 12/15/2024 98 - 107 [facility] PROTEIN, TOTAL 6.8 g/dL Normal 12/15/2024 5.7 - 8.2 [facility] GLOBULIN 2.3 g/dL Normal 12/15/2024 2.2 - 3.5 [facility] ALKALINE PHOSPHATASE 93.0 U/L Normal 12/15/2024 45 - 129 [facility] A[facility]G RATIO 2.0 g/dL Normal 12/15/2024 [facility] AST (SGOT) 33.0 U/L Normal 12/15/2024 0 - 34 [facility] PATIENT FASTING? YES Normal 12/15/2024 [facility] GLUCOSE 212.0 mg/dL Above high normal 03/15/2024 70 - 2 00 [facility] POCT GLUCOSE 350.0 mg/dL Above high normal 03/15/2024 70 - 2 00 [facility] POCT GLUCOSE 219.0 mg/dL Above high normal 03/14/2024 70 - 2 00 [facility] POCT GLUCOSE 280.0 mg/dL Above high normal 03/14/2024 70 - 2 00 [facility] POCT GLUCOSE 192.0 mg/dL Normal 03/14/2024 70 - 200 [facility] MAGNESIUM 1.9 mg/dL Normal 03/14/2024 1.8 - 3 [facility] POTASSIUM 4.7 mmol/L Normal 03/14/2024 3.6 - 5.1 [facility] SODIUM 134.0 mmol/L Below low normal 03/14/2024 137 - 144 [facility] GLUCOSE 182.0 mg/dL Normal 03/14/2024 70 - 200 [facility] CREATININE 1.1 mg/dL Normal 03/14/2024 0.6 - 1.2 [facility] ANION GAP 6.0 mmol/L Normal 03/14/2024 3 - 11 [facility] BICARBONATE 25.0 mmol/L Normal 03/14/2024 23 - 32 [facility] CHLORIDE 103.0 mmol/L Normal 03/14/2024 100 - 111 [facility] CALCIUM, TOTAL 8.9 mg/dL Normal 03/14/2024 8.4 - 10.2 [facility] UREA NITROGEN 16.0 mg/dL Normal 03/14/2024 8 - 24 [facility] GLOMERULAR FILTRATION RATE ML/MIN/1.73 SQ M.PREDICTED 58.0 mL/min/1.73m*2 Below low normal 03/14/2024 60 - [facility] ABSOLUTE MONOCYTE CT. 0.5 10*3/uL Normal 03/14/2024 0.2 - 0.8 [facility] MCH 32.8 pg Normal 03/14/2024 26 - 34 [facility] LYMPHOCYTE % 17.5 % Below low normal 03/14/2024 20 - 50 [facility] PLATELET COUNT 62.0 10*3/uL Below low normal 03/14/2024 150 - 440 [facility] IMMATURE GRANULOCYTE % 0.4 % Normal 03/14/2024 0 - 0.6 [facility] MCHC 35.1 g/dL Normal 03/14/2024 32 - [address] [facility] [address] 3.2 10*3/uL Normal 03/14/2024 1.4 - 6.3 [facility] WHITE CELL COUNT 4.8 10*3/uL Normal 03/14/2024 3.6 - 11 [facility] HEMATOCRIT 27.6 % Below low normal 03/14/2024 35 - 47 [facility] BASOPHILS % 0.2 % Normal 03/14/2024 0 - 2 [facility] MCV 93.2 fL Normal 03/14/2024 80 - [address] [facility] [address] 0.8 10*3/uL Normal 03/14/2024 0.7 - 4.5 [facility] AUTO NRBC % 0.0 % Normal 03/14/2024 0 - 0 [facility] EOSINOPHIL % 5.8 % Normal 03/14/2024 0 - 6 [facility] RED CELL COUNT 2.96 10*6/ L Below low normal 03/14/2024 3.8 - 5.[address] [facility] [address] 0.3 10*3/uL Normal 03/14/2024 0 - 0.3 [facility] MONOCYTE % 9.8 % Normal 03/14/2024 4 - [address] [facility] [address] 0.0 10*3/uL Normal 03/14/2024 0 - 0. 2 [facility] NEUTROPHIL % 66.3 % Normal 03/14/2024 40 - 70 [facility] RBC DISTRIBUTION WIDTH 14.3 % Normal 03/14/2024 11.6 - 14.8 [facility] HEMOGLOBIN 9.7 g/dL Below low normal 03/14/2024 12 - 16 [facility] POCT GLUCOSE 268.0 mg/dL Above high normal 03/14/2024 70 - 2 00 [facility] POCT GLUCOSE 337.0 mg/dL Above high normal 03/13/2024 70 - 2 00 [facility] POCT GLUCOSE 224.0 mg/dL Above high normal 03/13/2024 70 - 2 00 [facility] POCT GLUCOSE 121.0 mg/dL Normal 03/13/2024 70 - 200 [facility] FOLATE 9.5 ng/mL Normal 03/13/2024 7 - 31.4 [facility] VITAMIN B12 377.0 pg/mL Normal 03/13/2024 [facility] IRON BINDING CAPACITY 360.0 ug/dL Normal 03/13/2024 260 - 490 [facility] IRON 74.0 ug/dL Normal 03/13/2024 28 - 170 [facility] IRON SATURATION (%) IN SER/PLAS 21.0 % Normal 03/13/2024 [facility] FERRITIN 118.0 ng/mL Normal 03/13/2024 6 - 307 [facility] PHOSPHORUS 3.2 mg/dL Normal 03/13/2024 2.4 - 4.8 [facility] MAGNESIUM 1.7 mg/dL Below low normal 03/13/2024 1.8 - 3 [facility] CREATININE 1.1 mg/dL Normal 03/13/2024 0.6 - 1.2 [facility] BICARBONATE 26.0 mmol/L Normal 03/13/2024 23 - 32 [facility] UREA NITROGEN 12.0 mg/dL Normal 03/13/2024 8 - 24 [facility] SODIUM 133.0 mmol/L Below low normal 03/13/2024 137 - 144 [facility] CHLORIDE 100.0 mmol/L Normal 03/13/2024 100 - 111 [facility] POTASSIUM 4.4 mmol/L Normal 03/13/2024 3.6 - 5.1 [facility] GLUCOSE 115.0 mg/dL Normal 03/13/2024 70 - 200 [facility] GLOMERULAR FILTRATION RATE ML/MIN/1.73 SQ M.PREDICTED 58.0 mL/min/1.73m*2 Below low normal 03/13/2024 60 - [facility] CALCIUM, TOTAL 9.1 mg/dL Normal 03/13/2024 8.4 - 10.2 [facility] ANION GAP 7.0 mmol/L Normal 03/13/2024 3 - 11 [facility] RED CELL COUNT 3.08 10*6/ L Below low normal 03/13/2024 3.8 - 5.2 [facility] IMMATURE GRANULOCYTE % 0.3 % Normal 03/13/2024 0 - 0.6 [facility] NEUTROPHIL % 63.0 % Normal 03/13/2024 40 - 70 [facility] WHITE CELL COUNT 3.6 10*3/uL Normal 03/13/2024 3.6 - 11 [facility] AUTO NRBC % 0.0 % Normal 03/13/2024 0 - 0 [facility] MONOCYTE % 10.2 % Normal 03/13/2024 4 - [address] [facility] 0.7 10*3/uL Normal 03/13/2024 0.7 - 4.[address] [facility] [address] 0.4 10*3/uL Normal 03/13/2024 0.2 - 0.[address] [facility] [address] 2.3 10*3/uL Normal 03/13/2024 1.4 - 6.3 [facility] MCV 96.1 fL Normal 03/13/2024 80 - 100 [facility] RBC DISTRIBUTION WIDTH 14.5 % Normal 03/13/2024 11.6 - 14.8 [facility] EOSINOPHIL % 8.0 % Above high normal 03/13/2024 0 - 6 [facility] HEMATOCRIT 29.6 % Below low normal 03/13/2024 35 - 47 [facility] PLATELET COUNT 54.0 10*3/uL Below low normal 03/13/2024 150 - [address] [facility] [address] 0.0 10*3/uL Normal 03/13/2024 0 - 0. [address] [facility] [address] 0.3 10*3/uL Normal 03/13/2024 0 - 0.3 [facility] BASOPHILS % 0.6 % Normal 03/13/2024 0 - 2 [facility] LYMPHOCYTE % 17.9 % Below low normal 03/13/2024 20 - 50 [facility] MCH 33.1 pg Normal 03/13/2024 26 - 34 [facility] MCHC 34.5 g/dL Normal 03/13/2024 32 - 36 [facility] HEMOGLOBIN 10.2 g/dL Below low normal 03/13/2024 12 - 16 [facility] SMEAR PREPARATION Completed Normal 03/13/2024 [facility] RETICULOCYTES/100 ERYTHROCYTES IN BLOOD BY AUTOMATED COUNT 4.4 % Above high normal 03/13/2024 0.8 - 2.5 [facility] LACTIC ACID 0.9 mmol/L Normal 03/13/2024 0.5 - 1.9 [facility] POCT GLUCOSE 213.0 mg/dL Above high normal 03/13/2024 70 - 2 00 [facility] LACTIC ACID 2.4 mmol/L Above high normal 03/12/2024 0.5 - 1. 9 [facility] POCT GLUCOSE 90.0 mg/dL Normal 03/12/2024 70 - 200 [facility] POCT GLUCOSE 107.0 mg/dL Normal 03/12/2024 70 - 200 [facility] SMEAR PREPARATION Completed Normal 03/12/2024 [facility] RETICULOCYTES/100 ERYTHROCYTES IN BLOOD BY AUTOMATED COUNT 4.2 % Above high normal 03/12/2024 0.8 - 2.5 [facility] LACTIC ACID 2.2 mmol/L Above high normal 03/12/2024 0.5 - 1. 9 [facility] AUTO NRBC % 0.0 % Normal 03/12/2024 0 - 0 [facility] MCH 33.3 pg Normal 03/12/2024 26 - 34 [facility] LYMPHOCYTE % 20.5 % Normal 03/12/2024 20 - 50 [facility] HEMOGLOBIN 9.6 g/dL Below low normal 03/12/2024 12 - 16 [facility] MONOCYTE % 10.5 % Normal 03/12/2024 4 - [address] [facility] [address] 0.9 10*3/uL Normal 03/12/2024 0.7 - 4.5 [facility] IMMATURE GRANULOCYTE % 0.4 % Normal 03/12/2024 0 - 0.6 [facility] MCV 93.1 fL Normal 03/12/2024 80 - 100 [facility] EOSINOPHIL % 4.8 % Normal 03/12/2024 0 - 6 [facility] WHITE CELL COUNT 4.6 10*3/uL Normal 03/12/2024 3.6 - 11 [facility] RED CELL COUNT 2.88 10*6/ L Below low normal 03/12/2024 3.8 - 5.[address] [facility] [address] 0.5 10*3/uL Normal 03/12/2024 0.2 - 0.8 [facility] RBC DISTRIBUTION WIDTH 14.3 % Normal 03/12/2024 11.6 - 14.8 [facility] HEMATOCRIT 26.8 % Below low normal 03/12/2024 35 - [address] [facility] [address]. 2.9 10*3/uL Normal 03/12/2024 1.4 - 6.[address] [facility] [address] 0.0 10*3/uL Normal 03/12/2024 0 - 0. 2 [facility] NEUTROPHIL % 63.4 % Normal 03/12/2024 40 - 70 [facility] BASOPHILS % 0.4 % Normal 03/12/2024 0 - 2 [facility] MCHC 35.8 g/dL Normal 03/12/2024 32 - [address] [facility] [address] 0.2 10*3/uL Normal 03/12/2024 0 - 0.3 [facility] PLATELET COUNT 56.0 10*3/uL Below low normal 03/12/2024 150 - 440 [facility] POCT GLUCOSE 115.0 mg/dL Normal 03/12/2024 70 - 200 [facility] POCT GLUCOSE 60.0 mg/dL Below low normal 03/12/2024 70 - 200 [facility] FOLATE 9.4 ng/mL Normal 03/12/2024 7 - 31.4 [facility] VITAMIN B12 355.0 pg/mL Normal 03/12/2024 [facility] IRON SATURATION (%) IN SER/PLAS 23.0 % Normal 03/12/2024 [facility] IRON 82.0 ug/dL Normal 03/12/2024 28 - 170 [facility] IRON BINDING CAPACITY 362.0 ug/dL Normal 03/12/2024 260 - 490 [facility] FERRITIN 110.0 ng/mL Normal 03/12/2024 6 - 307 [facility] MCV 93.8 fL Normal 03/12/2024 80 - 100 [facility] HEMATOCRIT 28.6 % Below low normal 03/12/2024 35 - [address] [facility] [address] 4.1 10*3/uL Normal 03/12/2024 1.4 - 6.3 [facility] WHITE CELL COUNT 5.9 10*3/uL Normal 03/12/2024 3.6 - 11 [facility] LYMPHOCYTE % 15.0 % Below low normal 03/12/2024 20 - 50 [facility] NEUTROPHIL % 68.3 % Normal 03/12/2024 40 - 70 [facility] RED CELL COUNT 3.05 10*6/ L Below low normal 03/12/2024 3.8 - 5.2 [facility] MCH 33.4 pg Normal 03/12/2024 26 - 34 [facility] HEMOGLOBIN 10.2 g/dL Below low normal 03/12/2024 12 - 16 [facility] MONOCYTE % 10.6 % Normal 03/12/2024 4 - 12 [facility] PLATELET COUNT 67.0 10*3/uL Below low normal 03/12/2024 150 - 440 [facility] EOSINOPHIL % 5.6 % Normal 03/12/2024 0 - 6 [facility] AUTO NRBC % 0.0 % Normal 03/12/2024 0 - [address] [facility] [address] 0.6 10*3/uL Normal 03/12/2024 0.2 - 0.8 [facility] RBC DISTRIBUTION WIDTH 14.3 % Normal 03/12/2024 11.6 - 14.[address] [facility] [address] 0.3 10*3/uL Normal 03/12/2024 0 - 0.[address] [facility] [address] 0.9 10*3/uL Normal 03/12/2024 0.7 - 4.[address] [facility] [address] 0.0 10*3/uL Normal 03/12/2024 0 - 0. 2 [facility] MCHC 35.7 g/dL Normal 03/12/2024 32 - 36 [facility] BASOPHILS % 0.2 % Normal 03/12/2024 0 - 2 [facility] IMMATURE GRANULOCYTE % 0.3 % Normal 03/12/2024 0 - 0.6 [facility] LACTIC ACID 2.3 mmol/L Above high normal 03/12/2024 0.5 - 1. 9 [facility] POTASSIUM 4.0 mmol/L Normal 03/12/2024 3.6 - 5.1 [facility] BICARBONATE 27.0 mmol/L Normal 03/12/2024 23 - 32 [facility] GLUCOSE 62.0 mg/dL Below low normal 03/12/2024 70 - 200 [facility] CHLORIDE 100.0 mmol/L Normal 03/12/2024 100 - 111 [facility] GLOMERULAR FILTRATION RATE ML/MIN/1.73 SQ M.PREDICTED 52.0 mL/min/1.73m*2 Below low normal 03/12/2024 60 - [facility] CALCIUM, TOTAL 9.2 mg/dL Normal 03/12/2024 8.4 - 10.2 [facility] SODIUM 136.0 mmol/L Below low normal 03/12/2024 137 - 144 [facility] UREA NITROGEN 19.0 mg/dL Normal 03/12/2024 8 - 24 [facility] ANION GAP 9.0 mmol/L Normal 03/12/2024 3 - 11 [facility] CREATININE 1.2 mg/dL Normal 03/12/2024 0.6 - 1.2 [facility] PROTEIN TOTAL 5.5 g/dL Below low normal 03/12/2024 6.2 - 8. 1 [facility] BILIRUBIN, TOTAL 2.5 mg/dL Above high normal 03/12/2024 0.1 - 1.2 [facility] ALT (SGPT) 26.0 U/L Normal 03/12/2024 8 - 39 [facility] ALBUMIN, AUTOMATED 3.6 g/dL Below low normal 03/12/2024 3.8 - 5.3 [facility] ALKALINE PHOSPHATASE 47.0 U/L Normal 03/12/2024 39 - 113 [facility] AST (SGOT) 28.0 U/L Normal 03/12/2024 17 - 35 [facility] BILIRUBIN, DIRECT 0.8 mg/dL Above high normal 03/12/2024 0 - 0.5 [facility] PH OF URINE 6.5 Normal 03/12/2024 5 - 8 [facility] LEUKOCYTE ESTERASE Negative Normal 03/12/2024 - [facility] UROBILINOGEN, URINE 1.0 EU/dL Normal 03/12/2024 0.2 - 1 [facility] SPECIFIC GRAVITY 1.02 Normal 03/12/2024 - [facility] BACTERIA None Seen Normal 03/12/2024 - [facility] CLARITY OF URINE Clear Normal 03/12/2024 - [facility] HEMOGLOBIN, URINE Negative Normal 03/12/2024 - [facility] BILIRUBIN, URINE Negative Normal 03/12/2024 - [facility] EPITHELIAL CELLS None Seen Normal 03/12/2024 - [facility] WBC 0-5 Normal 03/12/2024 0 - 5 [facility] PROTEIN QUAL Negative Normal 03/12/2024 - [facility] NITRITE Negative Normal 03/12/2024 - [facility] KETONES URINE Negative Normal 03/12/2024 - [facility] GLUCOSE QUAL Negative Normal 03/12/2024 - [facility] COLOR OF URINE Yellow Normal 03/12/2024 - [facility] RBC 0-2 Normal 03/12/2024 0 - 2 [facility] SYSMEX CASTS 0-2 Normal 03/12/2024 - [facility] POCT GLUCOSE 192.0 mg/dL Normal 03/12/2024 70 - 200 [facility] LACTIC ACID 5.0 mmol/L Above high normal 03/12/2024 0.5 - 1. 9 [facility] POCT GLUCOSE 217.0 mg/dL Above high normal 03/11/2024 70 - 2 00 [facility] CANNABINOID Negative Normal 03/11/2024 - [facility] COCAINE METABOLITES URINE Negative Normal 03/11/2024 - [facility] OPIATES, URINE Negative Normal 03/11/2024 - [facility] BENZODIAZEPINE, URINE Negative Normal 03/11/2024 - [facility] ANTIBODY SCREEN NEG Normal 03/11/2024 [facility] RH TYPE IN BLOOD NEG Normal 03/11/2024 [facility] ABO GROUP (TYPE) IN BLOOD A Normal 03/11/2024 [facility] BILIRUBIN, DIRECT 0.8 mg/dL Above high normal 03/11/2024 0 - 0.5 [facility] ETHANOL <10.0 mg/dL Normal 03/11/2024 [facility] PROTEIN TOTAL 6.5 g/dL Normal 03/11/2024 6.2 - 8.1 [facility] BILIRUBIN, TOTAL 2.4 mg/dL Above high normal 03/11/2024 0.1 - 1.2 [facility] ALT (SGPT) 32.0 U/L Normal 03/11/2024 8 - 39 [facility] CHLORIDE 100.0 mmol/L Normal 03/11/2024 100 - 111 [facility] CREATININE 1.5 mg/dL Above high normal 03/11/2024 0.6 - 1.2 [facility] UREA NITROGEN 25.0 mg/dL Above high normal 03/11/2024 8 - 24 [facility] CALCIUM, TOTAL 10.1 mg/dL Normal 03/11/2024 8.4 - 10.2 [facility] ANION GAP 11.0 mmol/L Normal 03/11/2024 3 - 11 [facility] ALKALINE PHOSPHATASE 59.0 U/L Normal 03/11/2024 39 - 113 [facility] AST (SGOT) 36.0 U/L Above high normal 03/11/2024 17 - 35 [facility] POTASSIUM 4.7 mmol/L Normal 03/11/2024 3.6 - 5.1 [facility] GLUCOSE 174.0 mg/dL Normal 03/11/2024 70 - 200 [facility] BICARBONATE 25.0 mmol/L Normal 03/11/2024 23 - 32 [facility] GLOMERULAR FILTRATION RATE ML/MIN/1.73 SQ M.PREDICTED 40.0 mL/min/1.73m*2 Below low normal 03/11/2024 60 - [facility] ALBUMIN, AUTOMATED 4.2 g/dL Normal 03/11/2024 3.8 - 5.3 [facility] SODIUM 136.0 mmol/L Below low normal 03/11/2024 137 - 144 [facility] LACTIC ACID 2.2 mmol/L Above high normal 03/11/2024 0.5 - 1. 9 [facility] ACTIVATED PARTIAL THROMBOPLASTIN TIME IN PPP BY COAGULATION ASSAY 27.9 seconds Normal 03/11/2024 25.1 - 36.5 [facility] INR 1.3 ratio Above high normal 03/11/2024 0.9 - 1.1 [facility]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
--- OUTSIDE RECORDS SUMMARY | 2025-03-22 10:48 | XMS_ITS | Encounter Summary ---
Author Organization [facility] Address [address] [place] [address] Care Team Providers Care Receiver Name Role Phone Carolina Park MD Primary Care Provider Carolina Park MD Unavailable Carolina Park MD Unavailable [phone] Carolina Park MD Unavailable Armani Michelle MD Unavailable Armani Michelle MD Unavailable [phone] Pranav Jones MD Unavailable [phone] Steffany Kirkpatrick RN Unavailable [phone] Carla Talbert MD Primary Care Provider [phone] Reason for Visit * Reason Comments Medication Refill Encounter Details Date Type Department Care Team (Late st Contact Info) Description 08/31/2017 Refill [facility] [address] [address] Carolina Park MD [address] [address] Essential hypertension Social History Tobacco [...] hypertension documented in this encounter Care Teams Receiver Relationship Specialty Start Date End Date Carolina Park MD [address] [place] [address] PCP - General Internal Medicine 03/25/15 11/02/18 Carla Talbert MD [address] [place] [address] PCP - General Internal Medicine 07/14/22 Carolina Park MD [address] [place] [address] Internal Medicine 03/25/15 11/02/18 Carolina Park MD [address] [place] [address] Internal Medicine 03/25/15 11/02/18 Carolina Park MD [address] [place] [address] Internal Medicine 03/25/15 11/02/18 Armani Michelle MD [address] [place] [address] Gastroenterology 01/13/18 11/02/18 Armani Michelle MD 21 [facility] [address] [place] [address] Gastroenterology 11/03/18 Pranav Jones MD [address] [address] Medical Oncology 07/09/22 Steffany Kirkpatrick, RN [address] [place] [address] Registered Nurse 07/09/22 documented as of this encounter
--- OUTSIDE RECORDS SUMMARY | 2025-03-22 10:48 | XMS_ITS | Clinical Summary ---
Author Organization [facility] Address [address] [place] [address] Care Team Providers Care Credit Specialist Name Role Phone Carolina Park MD Primary Care Provider [phone] Allergies Active Allergy Reactions Criticality Noted Date [...] vitals flowing from different monitor Temperature 36.3 C (97.3 F) 01/03/2018 10:07 AM EDT Respiratory Rate 20 01/03/2018 10:4 [...] of Treatment Not on file Care Teams Credit Specialist Relationship Specialty Start Date End Date Carolina Park MD [address] [address] PCP - General Family Medicine 01/03/18
--- OUTSIDE RECORDS SUMMARY | 2025-03-22 10:48 | XMS_ITS | Clinical Summary ---
Author Organization [facility] Address [address] [place] [address] Care Team Providers Care Toe Laster Name Role Phone Carla Talbert MD Primary Care Provider [phone] Shawna Moore RN Unavailable Unavaila ble Allergies Active Allergy Reactions Criticality Noted Date Comments Penicillins Anaphylaxis High 04/11/2015 Medications dulaglutide (TRULICITY) 3 mg/0.5 mL subcutaneous pen injector Inject 3 mg under the skin every 7 days. 8 Active glyBURIDE-metfor min (GLUCOVANCE) 5-500 mg per tablet Take 2 [...] morning and 100 mg before bedtime. Active cholecalciferol, vitamin D3, 125 mcg (5,000 unit) capsule Take 5,000 Units by mouth. 3 Active pilocarpine HCl (Vuity) 1.25 % drops Administer into affected eye(s) daily. Active senna (SENOKOT) 8.6 mg tablet Take 2 tablets (17.2 mg total) by mouth nightly. 60 tablet 11 4 03/15/20 25 Active Problems Problem Noted Date Diagnosed Date [...] any time in the past 12 m [facility], were you homeless or living in a usp (including now)? No 03/12/2024 Comments No Sex and Gender Information Value Date Recorded Sex Assigned at Not on file Legal Sex Female 3:06 AM EST Gender Identity Not on file Sexual Orientation Straight 05/05/2021 1: 51 PM EDT Last Filed Vital Signs Vital Sign Reading Time Taken Comments Blood Pressure 94/76 04/24/2024 1:46 PM EDT Pulse 86 04/24/2024 1:46 PM EDT Temperature 36.4 C (97.5 F) 04/24/2024 1:46 PM EDT Respiratory Rate 18 04/24/2024 1:46 PM EDT [...] Description 04/23/2025 8:30 AM EDT Office Visit [facility] [address] [place] [address] Carolina Kelly MD [address] [place] [phone] Health Maintenance Due Date Last Done Comments [...] Screening 07/26/2019 07/26/20 17, 07/26/2017 COVID-19 Vaccine (2023-2 5 season) 2024 09/03/2021, 02/12/2021, 01/22/2021 Influenza Vaccine (#1) 2025 , 06/12/2021, 05/29/2018 DTaP,Tdap,and Td Vaccines (3 - [...] patient's age to complete this topic Insurance Member Subscriber Plan / Payer (Ef fective 2023-Present) Name:LUZ MARIA MANJARREZ Member ID:[id number] Relation to Subscriber:Self Name:Luz Maria Manjarrez Subscriber ID:[id number] Payer ID:[id number] ([facility]) Type:PPO Address: [place] [address] [place] [address] [facility] [employer] Advance Directives For more information, please contact: [phone] * Full Code (Latest Code Status on File) Date Activated Date Inactivated Comments 03/11/2024 2:58 PM 03/15/2024 2:58 PM Care Teams Toe Laster Relationship Specialty Start Date End Date Carla Talbert MD [address] [place] [address] PCP - General Family Medicine 05/05/21 Shawna Moore, RN [address] [place] [address] Nurse Navigator Nursing 04/06/24
== END ==
LOC: HO.CARD 10:24
PROVIDERS: Visit Provider Nurse Practitioner Family
DX: R00.2 Palpitations (principal)
CPT/HCPCS: 93242; 93350; Q9957

== ENCOUNTER → 2025-03-22 10:27 | Outpatient (BNV) | payer OTHER, SELFPAY | DX: R07.2 Precordial pain (principal); R06.02 Shortness of breath; I49.3 Ventricular premature depolarization | CPT/HCPCS: 93016; 93018; 93350; 93352 ==

== ENCOUNTER 2025-04-11 07:48 | Outpatient (AMB) | payer OTHER, SELFPAY ==
--- OUTSIDE RECORDS SUMMARY | 2025-04-11 07:50 | XMS_ITS | Clinical Summary ---
Author Organization [facility] Address [address] [place] [address] Care Team Providers Care Insurance Verification Specialist Name Role Phone Carolina Park MD Primary Care Provider [phone] Surgical History Surgery Date Site/Laterality Comments APPENDECTOMY PROCEDURE:APPENDECTOMY CARPAL TUNNEL RELEASE PROCEDURE:CARPAL TUNNEL RELEASE TOTAL ABDOMINAL HYSTERECTOMY PROCEDURE:TOTAL ABDOMINAL HYSTERECTOMY TRIGGER FINGER RELEASE PROCEDURE:TRIGGER FINGER RELEASE;COMMENT:3rd finger HAND SURGERY 01/03/2018 Left PROCEDURE:PALMAR FASCIECTOMY;COMMENT:Procedure: FASCIECTOMY PALMAR; Surgeon: Timothy Espino MD; Location: [facility]; Service: Orthopedics; Laterality: Left; Medical History Medical History Date Comments Diabetes mellitus, type II ( CMS/HCC V24, CMS/HCC V28) DX:Diabetes mellitus, type I I ([facility] Hypertension DX:Hypertension Dupuytren's contracture of left hand [...] Vaccine ( - 2023-2 5 season) 2024 Depression Screening 09/05/2024 Influenza Vaccine (#1) 2025 RSV Immunization Adult [...] age to complete this topic Care Teams Insurance Verification Specialist Relationship Specialty Start Date End Date Carolina Park MD [address] [place] [address] PCP - General Family Medicine 01/03/18
--- OUTSIDE RECORDS SUMMARY | 2025-04-11 07:50 | XMS_ITS | Clinical Summary ---
Author Organization [facility] Address [address] [place] [address] Care Team Providers Care Industrial Organizational Psychologist Name Role Phone Carolina Park MD Primary Care Provider [phone] Allergies Active Allergy Reactions Criticality Noted Date [...] of Treatment Not on file Care Teams Industrial Organizational Psychologist Relationship Specialty Start Date End Date Carolina Park MD [address] [address] PCP - General Family Medicine 01/03/18
--- OUTSIDE RECORDS SUMMARY | 2025-04-11 07:50 | XMS_ITS | Encounter Summary ---
Author Organization [facility] Address [address] [place] [address] Care Team Providers Care Drywall Metal Stud Worker Name Role Phone Carolina Park MD Primary Care Provider Carolina Park MD Unavailable [phone] Carolina Park MD Unavailable [phone] Carolina Park MD Unavailable Armani Michelle MD Unavailable Armani Michelle MD Unavailable Pranav Jones MD Unavailable [phone] Steffany Kirkpatrick RN Unavailable [phone] Carla Talbert MD Primary Care Provider [phone] Reason for Visit * Reason Comments Medication Refill Encounter Details Date Type Department Care Team (Late st Contact Info) Description 08/31/2017 Refill [facility] [address] [address] Carolina Park MD [address] [address] Essential hypertension Social History Tobacco [...] hypertension documented in this encounter Care Teams Drywall Metal Stud Worker Relationship Specialty Start Date End Date Carolina Park MD [address] [place] [address] PCP - General Internal Medicine 03/25/15 11/02/18 Carla Talbert MD [address] [place] [address] PCP - General Internal Medicine 07/14/22 Carolina Park MD [address] [place] [address] Internal Medicine 03/25/15 11/02/18 Carolina Park MD [address] [place] [address] Internal Medicine 03/25/15 11/02/18 Carolina Park MD [address] [place] [address] Internal Medicine 03/25/15 11/02/18 Armani Michelle MD [address] [place] [address] Gastroenterology 01/13/18 11/02/18 Armani Michelle MD 21 [facility] [address] [place] [address] Gastroenterology 11/03/18 Pranav Jones MD [address] [address] Medical Oncology 07/09/22 Steffany Kirkpatrick, RN [address] [place] [address] Registered Nurse 07/09/22 documented as of this encounter
--- OUTSIDE RECORDS SUMMARY | 2025-04-11 07:50 | XMS_ITS | Clinical Summary ---
Author Organization [facility] Address [address] [place] [address] Care Team Providers Care Electronic Gaming Device Supervisor Name Role Phone Carla Talbert MD Primary Care Provider [phone] Shawna Moore RN Unavailable Unavaila ble Allergies [...] any time in the past 12 m [facility], were you homeless or living in a care home (including now)? No 03/12/2024 Comments No Sex [...] Description 04/23/2025 8:30 AM EDT Office Visit [facility] [address] [place] [address] Carolina Kelly MD [address] [place] [phone] Health Maintenance Due Date Last Done Comments [...] patient's age to complete this topic [place] [address] [place] [address] [employer] Advance Directives For more information, please contact: [phone] * Full Code (Latest Code Status on File) Date Activated Date Inactivated Comments 03/11/2024 2:58 PM 03/15/2024 2:58 PM Care Teams Electronic Gaming Device Supervisor Relationship Specialty Start Date End Date Carla Talbert MD [address] [place] [address] PCP - General Family Medicine 05/05/21 Shawna Moore, RN [address] [place] [address] Nurse Navigator Nursing 04/06/24
--- NOTE | 2025-04-11 08:13 | MHC.OFFVIS ---
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: No Allergies Penicillins Allergy (Verified 04/11/25 08:16) Anaphylaxis sitagliptin (From Januvia) Allergy (Verified 04/11/25 08:16) Unknown Medication List - Last Reconciled 04/11/25 by Tyesha Mohr [employer]-C atorvastatin 10 mg PO BEDTIME atorvastatin (Lipitor) 10 mg PO BEDTIME fluticasone propionate 50 mcg/actuation (Flonase Allergy Relief) 1 spray intranasal DAILY insulin glargine (Lantus U-100 Insulin) 10 units subcut QPM levothyroxine 113 mcg PO DAILY mometasone 0.1% 0 appl topical spironolactone 50 mg PO DAILY tirzepatide (Mounjaro) 7.5 mg subcut valacyclovir 4,000 mg PO ONCE HPI HPI 2 mth s/p nuc/ holter: Details: Luz Maria is a 59-year-old female with past medical history of thrombocytopenia, anemia, CKD, type 2 diabetes, who was recently seen in the emergency room with an episode of chest discomfort, shortness of breath with lightheadedness. She ruled out for PE and ACS. She was found to have mild anemia which can contribute to shortness of breath. Echocardiogram showed normal EF and no regional wall motion abnormality. A stress echocardiogram and Holter monitor and now presents for follow-up. Today she reports she has been doing well overall. She continues to get periodic substernal chest discomfort which has been random. No chest discomfort clearly brought on by exertional activities. She will get some mild shortness of breath with exertion. No shortness of breath at rest, PND, orthopnea or edema. She will notice some brief rapid heart palpitations lasting seconds. No presyncope, syncope, falls. 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 [facility] Social History Alcohol intake: never Patient Tobacco Use Status: Never used Tobacco Review of Systems Const All systems reviewed & are unremarkable except as noted in HPI and below ENT Denies dizziness Card Details: palpitations Denies chest pain, Denies chest pain at rest, Denies chest pain with activity, Denies rapid heart rate, Denies pedal edema, Denies edema, Denies leg edema, Denies lightheadedness, Denies palpitations, Denies dyspnea, Denies dyspnea on exertion and Denies orthopnea Resp Denies cough, Denies dyspnea and Denies dyspnea on exertion GI Denies hematochezia and Denies change in stool character Musc Denies abnormal gait, Denies limited range of motion, Denies muscle cramps, Denies muscle weakness, Denies numbness, Denies radiating pain into limb, Denies stiffness and Denies tingling Neuro Denies abnormal gait, Denies dizziness, Denies numbness and Denies tingling Endo Denies palpitations Physical Exam Vital Signs: Last Vital Signs Pulse 65 04/11/25 08:14 BP 114/52 L 04/11/25 08:14 BMI result Body Mass Index 29.2 Const General: cooperative, healthy appearing, comfortable and no acute distress Orientation/consciousness: patient oriented x3 Neck Neck: Yes normal visual inspection and Yes no JVD Resp Effort & Inspection: normal respiratory effort Auscultation: clear to auscultation bilaterally, no rales, no rhonchi and no wheezes Cardio Rate: regular rate Rhythm: regular rhythm Heart sounds: S1 normal heart sound present, S2 normal heart sound present, no gallops, no murmurs and no rubs Neuro General: patient oriented x3 Extrem General: Yes normal to inspection, No no pedal edema and No calf tenderness Psych Appearance: grossly normal Mental Status: mental status grossly normal Speech and movement: Normal speech and movement present Assessment & Plan Assessment & Plan (1) Precordial chest pain: Code(s): R07.2 - Precordial pain Category: Medical Plan: Reports of random sharp chest discomfort and some mild shortness of breath with exertion without clear cardiac findings. ER evaluation for symptoms, negative ACS and PE. Cardiac risks of hyperlipidemia, diabetes, age. Echocardiogram 01/04/2025 showed EF 60-65%, impaired relaxation, moderate LVH, mild aortic sclerosis, mild thickening of the anterior and posterior mitral valve leaflets. EKG done 01/10/2025 shows normal sinus rhythm, no acute ST or T-wave abnormalities, rate 86. Stress echocardiogram done 03/22/2025 with no EKG changes or echo evidence of ischemia. Test results reviewed with her in detail. Signs and symptoms of true angina reviewed with her. (2) Shortness of breath: Code(s): R06.02 - Shortness of breath Category: Medical Plan: As above (3) Palpitations: Code(s): R00.2 - Palpitations Category: Medical Plan: Report of heart palpitations that she believes to be extrasystoles with short runs. Holter monitor done 03/22/2025 showing sinus rhythm, average rate 80 beats per minute, her symptoms correlated all with sinus rhythm. Echo shows normal EF. Test results reviewed with her and offered reassurance. No indication for med management at this time. Reviewed good hydration, avoidance of caffeinated beverages reviewed. (4) Aortic valve sclerosis: Code(s): I35.8 - Other nonrheumatic aortic valve disorders Category: Medical Plan: Recent echo showing mild aortic valve sclerosis with no stenosis as well as mild thickening of the anterior and posterior mitral valve leaflets. Will update echo in 2 years. Cardiology follow-up 2 years, sooner if needed. Plan Time spent on chart review, documentation, interview and assessment Coding Level of Care Code Est Pt Level 4 (05283) Complex EM visit Add On G2211 Diagnoses Precordial chest pain R07.2 Shortness of breath R06.02 Palpitations R00.2 Aortic valve sclerosis I35.8 Time Spent (min) 28
[2025-04-11 08:14] VITALS: BP 114/52; PULSE 65; BMI 29.2
== END 2025-04-11 08:41 | disposition home or self-care (01) ==
LOC: HO.HCS 07:48
PROVIDERS: PCP Hospitalist; Visit Provider Nurse Practitioner Family
DX: R07.2 Precordial pain (principal); R06.02 Shortness of breath; R00.2 Palpitations; I35.8 Other nonrheumatic aortic valve disorders
CPT/HCPCS: 99214